=== PATIENT | male | born 1950 | race Caucasian/White ===

== ENCOUNTER → 2018-03-13 09:50 | Outpatient (CLI) | payer MEDICARE, OTHER, SELFPAY ==
[2018-03-13 11:09] LABS: AST(SGOT) 22 U/L (15-37); Alanine Aminotransfer ALT/SGPT 33 U/L (16-61); Albumin, Serum 3.4 g/dL (3.2-5.0); Alkaline Phosphatase 106 U/L (45-117); Anion Gap 10 (5-15); BUN 16 mg/dL (7-18); Calcium,Total 8.7 mg/dL (8.5-10.1); Chloride 108 mmol/L (98-107); Cholesterol 145 mg/dL (200); Creatinine, Serum 0.94 mg/dL (0.70-1.30); EST Glomerular Filtration Rate 84 mL/min (>60); Est Glom Filt Rate - Afr Amer 102 mL/min (>60); Globulin 3.3 g/dL (2.2-4.2); Glucose 115 mg/dL (74-106); High Density Lipoprotein 46 mg/dL; PSA,Total - Annual Screen 2.52 ng/mL (0.00-4.00); Potassium 4.2 mmol/L (3.5-5.1); Protein, Total 6.7 g/dL (6.4-8.2); Sodium Level 143 mmol/L (136-145); Triglycerides 107 mg/dL; Very Low Density Lipoprotein 21 mg/dL (5-40)
[2018-03-14 11:31] LABS: Hep C Antibodies <0.1 s/co ratio (0.0-0.9)
== END ==
PROVIDERS: Family Provider Family Medicine; PCP Family Medicine; Visit Provider Family Medicine
DX: Z00.00 Encounter for general adult medical examination without abnormal findings (principal); I10 Essential (primary) hypertension; N40.0 Benign prostatic hyperplasia without lower urinary tract symptoms
CPT/HCPCS: 36415; 80053; 80061; 84153; 86803; G0103

== ENCOUNTER → 2019-03-15 09:40 | Outpatient (CLI) | payer MEDICARE, OTHER, SELFPAY ==
[2018-07-06 14:28] VITALS: BMI 25.4
[2019-03-15 12:51] LABS: AST(SGOT) 16 U/L (15-37); Alanine Aminotransfer ALT/SGPT 29 U/L (16-61); Albumin, Serum 3.5 g/dL (3.2-5.0); Alkaline Phosphatase 107 U/L (45-117); Anion Gap 7 (5-15); BUN 12 mg/dL (7-18); BUN/Creat Ratio 12.3 RATIO (10-20); Calcium,Total 8.6 mg/dL (8.5-10.1); Chloride 109 mmol/L (98-107); Cholesterol 160 mg/dL (200); Creatinine, Serum 0.98 mg/dL (0.70-1.30); EST Glomerular Filtration Rate 81 mL/min (>60); Est Glom Filt Rate - Afr Amer 98 mL/min (>60); Globulin 3.4 g/dL (2.2-4.2); Glucose 117 mg/dL (74-106); High Density Lipoprotein 41 mg/dL; PSA,Total - Annual Screen 2.84 ng/mL (0.00-4.00); Potassium 4.2 mmol/L (3.5-5.1); Protein, Total 6.9 g/dL (6.4-8.2); Sodium Level 142 mmol/L (136-145); Triglycerides 155 mg/dL; Very Low Density Lipoprotein 31 mg/dL (5-40)
== END ==
PROVIDERS: Family Provider Family Medicine; PCP Family Medicine; Visit Provider Family Medicine
DX: E78.5 Hyperlipidemia, unspecified (principal); N40.0 Benign prostatic hyperplasia without lower urinary tract symptoms; Z12.5 Encounter for screening for malignant neoplasm of prostate
CPT/HCPCS: 36415; 80053; 80061; 84153; G0103

== ENCOUNTER → 2020-02-21 07:14 | Outpatient (CLI) | payer MEDICARE, OTHER, SELFPAY ==
[2020-02-14 15:04] VITALS: BMI 25.7
--- NOTE | 2020-02-21 07:15 | MRI_ITS ---
STUDY: MRI RIGHT SHOULDER REASON FOR EXAM: Male, 69 years old. DECREASED ROM, UNABLE TO ABDUCT R ARM, NO INJURY TECHNIQUE: Standardized fat and water weighted pulse sequences were obtained in all 3 orthogonal planes. COMPARISON: None. FINDINGS: Mild supraspinatus and infraspinatus tendinosis and peritendinitis is but no macro tear or muscular atrophy. Moderate subscapularis tendinosis with a undersurface tear with the intra-articular subluxation of the long head of the biceps tendon. Normal teres minor tendon. Normal supraspinatus muscle. Normal infraspinatus muscle. Normal subscapularis muscle. Normal teres minor muscle. Normal glenohumeral articulation. Normal humeral head and visualized proximal humerus. Normal biceps labral complex. There is dislocation of the biceps tendon, displaced medially along the deep surface of the subscapularis tendon. Normal labrum. Normal capsulo- ligamentous complex. Normal rotator interval. There is moderate osteoarthritis of the acromioclavicular articulations. There is a Type II morphology (curved), with a neutral orientation. There is no subacromial-subdeltoid bursal fluid. There is thickening of the coracohumeral ligament with low-signal material partially effacing the subcoracoid fat triangle, compatible with adhesive capsulitis in the rotator cuff interval. Normal quadrilateral space. Normal axillary space. Normal deltoid muscle. Normal trapezius muscle. MRI/Upper Ext Joint Only(Routine) IMPRESSION: 1. Suspect clinical adhesive capsulitis. 2. Mild supraspinatus and infraspinatus tendinosis and peritendinitis is but no macro tear or muscular atrophy. 3. Moderate acromioclavicular joint arthrosis with some inferior osteophyte formation producing medial outlet stenosis. 4. Moderate subscapularis tendinosis with an undersurface tear and intra-articular subluxation long head of the biceps tendon. Electronically Signed: Lars Leung MD at 9:04 EDT Tel , Service support ,
== END ==
PROVIDERS: PCP Family Medicine; Referring Provider Family Medicine; Visit Provider Family Medicine
DX: M19.011 Primary osteoarthritis, right shoulder (principal)
CPT/HCPCS: 73221

== ENCOUNTER → 2020-03-16 08:07 | Outpatient (CLI) | payer MEDICARE, OTHER, SELFPAY ==
[2020-02-28 08:27] VITALS: BMI 25.0
[2020-03-16 12:28] LABS: ALB/GLOB Ratio 1.1 RATIO (0.9-2.4); AST(SGOT) 19 U/L (15-37); Alanine Aminotransfer ALT/SGPT 28 U/L (16-61); Albumin, Serum 3.5 g/dL (3.2-5.0); Alkaline Phosphatase 106 U/L (45-117); Anion Gap 7 (5-15); BUN 20 mg/dL (7-18); BUN/Creat Ratio 19.6 RATIO (10-20); Calcium,Total 8.5 mg/dL (8.5-10.1); Chloride 107 mmol/L (98-107); Cholesterol 150 mg/dL (200); Creatinine, Serum 1.02 mg/dL (0.70-1.30); EST Glomerular Filtration Rate 76 mL/min (>60); Est Glom Filt Rate - Afr Amer 92 mL/min (>60); Globulin 3.2 g/dL (2.2-4.2); Glucose 126 mg/dL (74-106); High Density Lipoprotein 44 mg/dL; Potassium 3.8 mmol/L (3.5-5.1); Protein, Total 6.7 g/dL (6.4-8.2); Sodium Level 140 mmol/L (136-145); Triglycerides 131 mg/dL; Very Low Density Lipoprotein 26 mg/dL (5-40)
== END ==
PROVIDERS: PCP Family Medicine; Visit Provider Family Medicine
DX: E78.5 Hyperlipidemia, unspecified (principal); E78.00 Pure hypercholesterolemia, unspecified
CPT/HCPCS: 36415; 80053; 80061

== ENCOUNTER 2020-03-31 09:30 | Outpatient (RCR) | payer MEDICARE, OTHER, SELFPAY ==
[2020-02-28 08:27] VITALS: BMI 25.0
--- NOTE | 2020-03-04 12:35 | HP.PTEVAL_ITS ---
Patient's Visit Information RHONDA CARTER is a 69 year old M referred to Physical Therapy by Dr. Navdeep Ramirez, with a diagnosis of IMPINGEMNET,SUBSCAPULARIS PARTIAL TEAR. Date of Evaluation: 03/04/20 Physical Therapist: Goldy Ruiz, PT, Cert MDT, OCS - Visit Plan Frequency: 2x /Week Duration: 4 Weeks Plan: PT INTERVENTIONS RTC/SCAPULAR STRENGTHENING,ROM,POSTURAL EX'S,MODLATIES NEEDED - Subjective This 69 y/o male presents to physical therapy with right shoulder impingement ,subscapularis tear. Patient has had right shoulder since September ,see DR Velez then referred to DR Pedraza , Did MRI showed partai subscapularis tear,Did cortizone injection which helped. Patient shoulder pain is grossly .Patient symptoms worse with OH activity ,lifting and movement to side affects ADLS. Patient alleviating factors cortizone and meloxicam. Denies parthesia/tingling. Symptoms dont affect sleeping.Patient symptoms affects QOL and ADL. No h/o of trauma and/or falls. SOCAIL: . VOCATION: retired - Pain Right Shoulder Pain Intensity (Out of 10): 2 - Objective POSTURE:mild foward posture. NEURO: intact. PALAPTION: unremarkable. AROM: shoulder fexion 150 degrees endrange,abd 145 degrees pain along with eccentric,ER 90 DEGREES,IR L1. MMT: RTC 4/5,ANTERIOR 4-/5 pain ,LATERAL DELTIOD 3+/5 - Special Tests R Shoulder External Rotation Lag Test - RC Tear: Negative R Shoulder Supine Impingement Test - RC Tear: Negative R Shoulder Lift Off Test - Subscapular Tear: Negative R Shoulder Belly Press - SupScap: Negative R Shoulder Neer - Impingement: Positive R Shoulder Baptiste Blanco - Impingement: Positive - Goals Goal 1:: Independant with HEP Goal Time Frame: 4-6 Weeks Goal 2:: Patient improve posture for ADL'S Goal Time Frame: 4-6 Weeks Goal 3:: Patient to decrease shoulder pain by 50% or > to improve function Goal Time Frame: 4-6 Weeks Goal 4:: Patient to increase AROM shoulder WFL with less pain with OH activities Goal Time Frame: 4-6 Weeks Goal 5:: Patient to increase strength 4/5 with mild pain to improve function. Goal Time Frame: 4-6 Weeks Goal 6:: Patient to improve quick dash by 5 points or > to imporove QOL. - Rehabilitation Potential Physical Therapy Diagnosis: This patient has mod imingment right shoulder with subscapularis tear partial with decrease ROM ,strength and function with OH activities thus benifit from skilled PT Rehabilitation Potential: Good - Anticipated Interventions Patient/Client Instruction: Educate patient on: Condition, Plan of Care For the Purpose of:: To decrease pain, To increase ROM, To improve muscle p erformance and motor function, To increase tolerance to activity/condition/position, To improve ability of physical actions for home/community/work/leisure, To improve gait and locomotor functions, To decrease soft tissue restriction, To increase flexibility/ROM, To improve endurance, To reduce risk of recurrence, To improve ability to perform tasks related to life management Therapeutic Exercise to Include: Strength training, Postural training, Flexibilty training, Scapular Strength/Stabilization Comment: RTC For the Purpose of:: To decrease pain, To increase ROM, To improve muscle performance and motor function, To improve ability to perform ADL's, To increase tolerance to activity/condition/position, To improve ability of physical actions for home/community/work/leisure, To improve health of tissue, To decrease soft tissue restriction, To increase flexibility/ROM, To reduce risk of recurrence, To improve ability to perform tasks related to life management TENS: Yes IF ES: Yes Cryotherapy (ice pack, ice massage): Yes Thermo therapy (hot pack): Yes Ultrasound (thermal/non thermal): Yes For the Purpose of:: To decrease pain, To increase ROM, To improve nutrient delivery to tissue, To increase oxygenation perfusion, To improve health of tissue, To decrease soft tissue restriction Thank you for the opportunity to evaluate your patient. For Medicare and Medicare HMO plans, please review the plan of care and approve it. It will need to be FAXED BACK to us at [phone] for Medicare purposes. For Medicare only, by signing this I certify the plan of care. Please let me know if there are questions or concerns regarding this plan of care. Physician Signature: Date:
--- NOTE | 2020-03-31 09:59 | HP.PTDCSUM ---
It has been my pleasure to treat RHONDA CARTER referred by Dr. Navdeep Ramirez DO, with the diagnosis of IMPINGEMNET,SUBSCAPULARIS PARTIAL TEAR for a total of 9 visit(s). Discharge Date: Please see the following information for a summary of their discharge status. Subjective: Doing well able to do all ADLS' and housework tasks Right Shoulder Pain Intensity (Out of 10): 0 % Improvement: 100 Objective/Function: POSTURE: mild foward posture. AROM SHOULDER : flexion 160 degrees,160 abd ,ER 90 ,IR BEHIND BACK L2. MMT: RTC 4/5,DELTOID 4/5 Goal 1:: Independant with HEP Goal Progress: Goal Met Goal 2:: Patient improve posture for ADL'S Goal Progress: Goal Met Goal 3:: Patient to decrease shoulder pain by 50% or > to improve function Goal Progress: Goal Met Goal 4:: Patient to increase AROM shoulder WFL with less pain with OH activities Goal Progress: Goal Met Goal 5:: Patient to increase strength 4/5 with mild pain to improve function. Goal Progress: Goal Met Goal 6:: Patient to improve quick dash by 5 points or > to imporove QOL. Goal Progress: Goal Met Plan: D/C TO HEP If there are questions or concerns regarding this patient's physical therapy, please feel free to call me at [phone]. Thank you for the referral of this patient. Sincerely, Goldy Ruiz PT, Cert MDT, OCS
== END 2020-03-31 19:00 | disposition home or self-care (01) ==
LOC: PT 09:30
PROVIDERS: PCP Family Medicine; Referring Provider Orthopaedic Surgery; Visit Provider Orthopaedic Surgery
DX: M75.110 Incomplete rotator cuff tear or rupture of unspecified shoulder, not specified as traumatic (principal)
CPT/HCPCS: 97110; 97162

== ENCOUNTER → 2021-04-09 08:24 | Outpatient (CLI) | payer MEDICARE, OTHER, SELFPAY ==
[2021-04-09 12:40] LABS: ALB/GLOB Ratio 0.9 RATIO (0.9-2.4); AST(SGOT) 16 U/L (15-37); Alanine Aminotransfer ALT/SGPT 33 U/L (16-61); Alkaline Phosphatase 103 U/L (45-117); Anion Gap 5 (5-15); BUN 15 mg/dL (7-18); BUN/Creat Ratio 15.9 RATIO (10-20); Calcium,Total 8.3 mg/dL (8.5-10.1); Chloride 109 mmol/L (98-107); Cholesterol 116 mg/dL (200); Creatinine, Serum 0.94 mg/dL (0.70-1.30); EST Glomerular Filtration Rate 83 mL/min (>60); Est Glom Filt Rate - Afr Amer 101 mL/min (>60); Globulin 3.4 g/dL (2.2-4.2); Glucose 114 mg/dL (74-106); High Density Lipoprotein 41 mg/dL; PSA,Total- Diagnostic 3.79 ng/mL (0.0-4.0); Potassium 3.8 mmol/L (3.5-5.1); Protein, Total 6.4 g/dL (6.4-8.2); Sodium Level 141 mmol/L (136-145); Triglycerides 95 mg/dL; Very Low Density Lipoprotein 19 mg/dL (5-40)
== END ==
PROVIDERS: PCP Family Medicine; Referring Provider Family Medicine; Visit Provider Family Medicine
DX: E78.00 Pure hypercholesterolemia, unspecified (principal); N40.1 Benign prostatic hyperplasia with lower urinary tract symptoms; R35.0 Frequency of micturition
CPT/HCPCS: 36415; 80053; 80061; 84153

== ENCOUNTER → 2021-05-13 | Outpatient (CLI) | payer MEDICARE, OTHER, SELFPAY ==
--- NOTE | 2021-05-13 11:30 | LES_PTH ---
PATIENT: RHONDA CARTER LOC: [facility] U#:[id number] AGE/SX: 71/M ROOM: RE05/13/[address]: Dr. Shoaib Velez DO : 1950 BED: DIS: 05/13/2021 SPEC #: [id number] RECD: 05/13/21 14:32 STATUS: ALTAGRACIA REJimmy #: [id number] JOSELITO: 05/13/21 11:[address]: Shoaib Velez DEPT: SURGICAL PATHOLOGY RECD BY: Ryann Bar Tissues: Skin of scalp, NOS Procedures: Surgery Specimen Level IV HEADER OPERATION: Horn removal PRE-OP DIAGNOSIS: Cutaneous horn TISSUE SUBMITTED: Scalp MICROSCOPIC DIAGNOSIS Scalp lesion, biopsy: Superficial portion of squamous epithelial lesion with verrucous features. See comment. GREGOR:brianna 05/17/2021 COMMENT Excision of the lesion is suggested for final diagnosis. The specimen only consists of superficial portion of the lesion. Clinical correlation and appropriate follow up are necessary. MICROSCOPIC DESCRIPTION Slides are reviewed. GROSS DESCRIPTION Received in fixative is one container labeled with the patient's name and designated scalp. The specimen consists of a round piece of garcia-white skin measuring 0.5 x 0.5 x 0.3 cm. The specimen is inked, sectioned and submitted entirely in one cassette. / SJ:rg 05/14/21 TC:5 [facility]: [id number]
== END | disposition home or self-care (01) ==
LOC: LABSPEC 13:38
PROVIDERS: PCP Family Medicine; Referring Provider Family Medicine; Visit Provider Family Medicine
DX: L85.8 Other specified epidermal thickening (principal)
CPT/HCPCS: 88305

== ENCOUNTER → 2021-12-22 | Outpatient (CLI) | payer MEDICARE, OTHER, SELFPAY ==
--- NOTE | 2021-12-22 12:18 | RAD_ITS ---
STUDY: X-RAY - LEFT KNEE REASON FOR EXAM: Male, 71 years old. Left knee weakness. TECHNIQUE: 4 view(s) of the knee. COMPARISON: None. FINDINGS: Normal visualized distal femur. Normal visualized proximal tibia and fibula. Normal proximal tibiofibular articulation. Normal medial femorotibial compartment. Normal lateral femorotibial compartment. Slight lateral tilt and subluxation of the patella with mild arthrosis of the patellofemoral compartment. The soft tissue structures are unremarkable. RAD/Knee 4 or More Views IMPRESSION: Mild arthrosis of the patellofemoral compartment. Electronically Signed: Dung Romero MD at 13:08 EDT ,
--- NOTE | 2021-12-22 12:22 | RAD_ITS ---
STUDY: X-RAY - LUMBAR SPINE REASON FOR EXAM: Male, 71 years old. Low back pain. TECHNIQUE: 3 view(s) of the lumbar spine were obtained. COMPARISON: None FINDINGS: Mild osteopenia. Normal lumbar lordosis. There is no substantial scoliosis. There is a normal alignment of the vertebrae. Diffuse facet sclerosis. Diffuse intervertebral disc space narrowing most marked at L1-2, L2-3 and to the greatest degree L5-S1 with osteophyte formation. Aortic calcification. RAD/Lumbar Spine 2 or 3 Views IMPRESSION: Osteopenia with moderate diffuse lumbosacral spondylosis. No acute abnormality, evidence of erosive changes or fusion. Electronically Signed: Dung Romero MD at 13:10 EDT ,
== END | disposition home or self-care (01) ==
PROVIDERS: PCP Family Medicine; Referring Provider Physician Assistant; Visit Provider Physician Assistant
DX: M25.562 Pain in left knee (principal); M54.40 Lumbago with sciatica, unspecified side
CPT/HCPCS: 72100; 73564

== ENCOUNTER 2022-01-28 10:00 | Outpatient (RCR) | payer MEDICARE, OTHER, SELFPAY ==
--- NOTE | 2021-12-31 11:31 | HP.PTEVAL_ITS ---
Patient's Visit Information RHONDA CARTER is a 71 year old M referred to Physical Therapy by MILLICENT Tripathi with a diagnosis of ACUTE BACK PAIN WITH SCIATICA. Date of Evaluation: 12/31/21 Physical Therapist: Goldy Ruiz, PT, Cert MDT, OCS - Visit Plan Frequency: 2x /Week Duration: 4 Weeks Plan: PT INTERVETIONS LUMBAR FLEXION ,DLS ,PSOTURAL EX'S AND MODLITIES ,ACTIVITY MODIFICATIONS - Subjective This 71 y/o male presents to physical therapy with lumbar radiculopathy . Patient has had lumbar radiculopathy for ~ 4 weeks . Symptoms worse with possible walking causing symptoms in leg. Location ls region thigh and lateral tibia . Heavy ache and initially was ache. Seen DR tried prednisone and muscle relaxers. Patient had x-rays showed DDD . Try PT . Aggravating walking, standing affects ADLS'. Alleviating symptoms rest ,hard chair Teylonal. Patient sleeping good. c/o paresthesia/tingling left lower leg. Coughing/sneezing/staining. No abnormal night pain. Bowel/bladder -. Patient pain affects QOL and housework tasks. No prior PT . No h/o trauma. Knee feel as though gives way. SOCAIL: . VOCATION: retired - Pain Left Back Pain Intensity (Out of 10): 9 Pain Intensity Range: 10 Left Lower Extremity Pain Intensity (Out of 10): 6 Pain Intensity Range: 10 - Objective POSTURE: mild forward posture. PALAPTION: tender LS left. NEURO: c/o paresthesia/tingling left lower leg light touch diminished ,reflexes L3-4,L4-5,L5-S1 1/3. SYMMETRIES : align. GAIT: reciprocal pattern mild antalgic gait. MMT: quads/hams 4/5,hip flexion 4-/5,ankle 4/5. FLEXABLITY: hamstrings mod tight. LUMBAR ROM: flexion mod loss ,extension mod loss ,side glides mod loss - Special Tests L/S Slump test left side: Negative L/S Slump test right side: Negative L/S Left Straight Leg Raise: Negative L/S Right Straight Leg Raise: Negative Lumbar Standing: Flexion - Mechanical Response: No effect Lumbar Standing: Flexion - Symptoms During Testing: Increases Lumbar Standing: Flexion - Symptoms After Testing: No worse Lumbar Standing: Extension - Mechanical Response: No effect Lumbar Standing: Extension - Symptoms During Testing: Increases Lumbar Standing: Extension - Symptoms After Testing: Worse Lumbar Standing: Right Side Glides - Mechanical Response: No effect Lumbar Standing: Right Side Garrison - Symptoms During Testing: No effect Lumbar Standing: Right Side Garrison - Symptoms After Testing: No effect Lumbar Standing: Left Side Garrison - Mechanical Response: No effect Lumbar Standing: Left Side Garrison - Symptoms During Testing: No effect Lumbar Standing: Left Side Garrison - Symptoms After Testing: No effect - Balance/Special Test Scores Oswestry Low Back Score: 18 - Goals Goal 1:: I with HEP for back Goal Time Frame: 4-6 Weeks Goal 2:: Patient to demonstrate 50% improvement with decrease pain and improved function Goal Time Frame: 4-6 Weeks Goal 3:: Patient to improve lumbar ROM for function of recovery to put on shoes Goal Time Frame: 4-6 Weeks Goal 4:: Patient be able to standing walk > 15 mins with less pain in leg and back Goal Time Frame: 4-6 Weeks Goal 5:: Patient to improve back oswestry score by 5 points to improve QOPL Goal Time Frame: 4-6 Weeks - Rehabilitation Potential Physical Therapy Diagnosis: This patient has left lateral stenosis foraminal with symptoms increased with position and motion testing impairs walking and standing affects ADL's and housework task thus benefit from skilled PT Rehabilitation Potential: Good - Anticipated Interventions Patient/Client Instruction: Educate patient on: Condition, Plan of Care For the Purpose of:: To decrease pain, To increase ROM, To improve muscle performance and motor function, To improve ability to perform ADL's, To increase tolerance to activity/condition/position, To improve ability of physical actions for home/community/work/leisure, To improve health of tissue, To decrease soft tissue restriction, To increase flexibility/ROM, To improve endurance, To prevent re-injury, To improve tolerance to ADL's Therapeutic Exercise to Include: Strength training, Endurance training, Balance training, Body mechanics, Postural training, Flexibilty training, Dynamic Lumbar Stabilization For the Purpose of:: To decrease pain, To increase ROM, To improve muscle performance and motor function, To improve ability to perform ADL's, To improve performance and independence with ADL's, To improve ability of physical actions for home/community/work/leisure, To improve health of tissue, To decrease soft tissue restriction, To increase flexibility/ROM, To improve balance, To reduce risk of recurrence TENS: Yes IF ES: Yes Cryotherapy (ice pack, ice massage): Yes Thermo therapy (hot pack): Yes Ultrasound (thermal/non thermal): Yes For the Purpose of:: To decrease pain, To increase ROM, To improve nutrient delivery to tissue, To increase oxygenation perfusion, To improve health of tissue, To decrease soft tissue restriction Thank you for the opportunity to evaluate your patient. For Medicare and Medicare HMO plans, please review the plan of care and approve it. It will need to be FAXED BACK to us at [phone] for Medicare purposes. For Medicare only, by signing this I certify the plan of care. Please let me know if there are questions or concerns regarding this plan of care. Physician Signature: Date:
--- NOTE | 2022-01-28 11:45 | HP.PTDCSUM ---
It has been my pleasure to treat RHONDA CARTER referred by MILLICENT Tripathi, with the diagnosis of ACUTE BACK PAIN WITH SCIATICA for a total of 9 visit(s). Discharge Date: 01/28/22 Please see the following information for a summary of their discharge status. Subjective: Doing well ready Left Back Pain Intensity (Out of 10): 1 Left Lower Extremity Pain Intensity (Out of 10): 0 Objective/Function: POSTURE: mild forward posture. GAIT: reciprocal pattern. MMT: quads/hams 4/5,hip flexion 4/5 ,ankle 5/5. LUMBAR ROM: flexion min loss ,extension min loss, Goal 1:: I with HEP for back Goal Progress: Goal Met Goal 2:: Patient to demonstrate 50% improvement with decrease pain and improved function Goal Progress: Goal Met Goal 3:: Patient to improve lumbar ROM for function of recovery to put on shoes Goal Progress: Goal Met Goal 4:: Patient be able to standing walk > 15 mins with less pain in leg and back Goal Progress: Goal Met Goal 5:: Patient to improve back oswestry score by 5 points to improve QOPL Goal Progress: Goal Met Plan: D/C Discharge Comments: hep If there are questions or concerns regarding this patient's physical therapy, please feel free to call me at [phone]. Thank you for the referral of this patient. Sincerely, Goldy Ruiz, PT, Cert MDT, OCS Balance/Gait/Functional tests - Balance/Special Test Scores Oswestry Low Back Score: 2
== END 2022-01-28 19:00 | disposition home or self-care (01) ==
LOC: PT 10:00
PROVIDERS: PCP Family Medicine; Referring Provider Physician Assistant; Visit Provider Physician Assistant
DX: M54.40 Lumbago with sciatica, unspecified side (principal)
CPT/HCPCS: 97110; 97162

== ENCOUNTER → 2022-04-11 | Outpatient (CLI) | payer MEDICARE, OTHER, SELFPAY ==
[2022-04-11 12:49] LABS: ALB/GLOB Ratio 1.1 RATIO (0.9-2.4); AST(SGOT) 18 U/L (15-37); Alanine Aminotransfer ALT/SGPT 29 U/L (16-61); Albumin, Serum 3.4 g/dL (3.2-5.0); Alkaline Phosphatase 93 U/L (45-117); Anion Gap 8 (5-15); BUN 17 mg/dL (7-18); Calcium,Total 8.7 mg/dL (8.5-10.1); Chloride 110 mmol/L (98-107); Cholesterol 141 mg/dL (200); EST Glomerular Filtration Rate 78 mL/min (>60); Est Glom Filt Rate - Afr Amer 94 mL/min (>60); Globulin 3.2 g/dL (2.2-4.2); Glucose 160 mg/dL (74-106); High Density Lipoprotein 43 mg/dL; Potassium 3.9 mmol/L (3.5-5.1); Protein, Total 6.6 g/dL (6.4-8.2); Sodium Level 142 mmol/L (136-145); Triglycerides 136 mg/dL; Very Low Density Lipoprotein 27 mg/dL (5-40)
== END | disposition home or self-care (01) ==
LOC: BIMLAB 09:55
PROVIDERS: PCP Family Medicine; Referring Provider Family Medicine; Visit Provider Family Medicine
DX: E78.00 Pure hypercholesterolemia, unspecified (principal)
CPT/HCPCS: 36415; 80053; 80061

== ENCOUNTER → 2022-04-21 | Outpatient (CLI) | payer MEDICARE, OTHER, SELFPAY ==
[2022-04-21 12:49] LABS: Hemoglobin A1c 6.8 % (3.8-5.6)
== END | disposition home or self-care (01) ==
LOC: BIMLAB 10:05
PROVIDERS: PCP Family Medicine; Referring Provider Family Medicine; Visit Provider Family Medicine
DX: N40.1 Benign prostatic hyperplasia with lower urinary tract symptoms (principal); R35.0 Frequency of micturition; N52.9 Male erectile dysfunction, unspecified; Z79.899 Other long term (current) drug therapy
CPT/HCPCS: 36415; 83036; 84153; 84403

== ENCOUNTER → 2022-08-08 | Outpatient (CLI) | payer MEDICARE, OTHER, SELFPAY ==
[2022-08-08 12:44] LABS: Hemoglobin A1c 7.1 % (3.8-5.6)
== END | disposition home or self-care (01) ==
LOC: BIMLAB 10:04
PROVIDERS: PCP Family Medicine; Referring Provider Family Medicine; Visit Provider Family Medicine
DX: R73.09 Other abnormal glucose (principal)
CPT/HCPCS: 36415; 83036

== ENCOUNTER 2022-12-01 13:30 | Outpatient (RCR) | payer MEDICARE, OTHER, SELFPAY ==
--- NOTE | 2022-11-24 12:29 | HP.PTEVAL_ITS ---
Patient's Visit Information RHONDA CARTER is a 72 year old M referred to Physical Therapy by Dr. Goldy Yip MD with a diagnosis of Parkinson's. Date of Evaluation: 11/24/22 Physical Therapist: ERVIN Way - Visit Plan Frequency: 1x/Week Duration: 3 Weeks Plan: 1-2 visits to learn I HEP for balance, dual tasking, gait, posture and pt to join PD class 1 X/ week. HEP: standing heel and toe raises - Subjective Pt was dx with PD in the fall. He is meds 3X/ day. just changed the meds 2 weeks ago but has not noticed a difference. R elbow down on the R does the shaking. His R foot tends to flop when tired and they walk 1.5 miles per day. No falls. He does not feel any weakness. No trouble getting in and out of bed and no trouble rolling over in bed. No trouble on stairs. - Objective Gait: walks with normal gait pattern with increase shaking of R UE. He picks up his feet and has a good stride length. LE MMT: R hip flexion 12.3 and L 11.5. R knee ext 24.2 and L 20.3. R knee flex 14.1 and L 11.8. FGA: 28. TU.27. heel and toe raises: able to raise both without UE support and without LOB but has decrease ROM with B DF. standing opp arm and leg: Only able to do 3 in a row at first and then had to concentrate and was able to get up to 10 in a row. - Balance/Special Test Scores Functional Gait Assessment Score: 28 % Disability: 6.6700 Lower Extremity Functional Score: 60 - Goals Goal 1:: I HEP for posture, dual tasking, gait, balance Goal Time Frame: 4-6 Weeks Goal 2:: Be able to complete X 20 Standing opp arm and leg in a row with counting Goal Time Frame: 4-6 Weeks - Rehabilitation Potential Rehabilitation Potential: Good - Anticipated Interventions Patient/Client Instruction: Educate patient on: Condition, Plan of Care For the Purpose of:: To increase ROM, To improve nutrient delivery to tissue, To improve muscle performance and motor function, To improve ability to perform ADL's, To increase tolerance to activity/condition/position, To improve performance and independence with ADL's, To improve ability of physical actions for home/community/work/leisure, To improve gait and locomotor functions, To improve balance, To improve safety with gait Therapeutic Exercise to Include: Strength training, Balance training, Postural training, Gait and locomotor training, Neuromotor development, Active ROM For the Purpose of:: To improve nutrient delivery to tissue, To improve muscle performance and motor function, To increase tolerance to activity/condition/position, To improve performance and independence with ADL's, To decrease level of supervision to perform tasks, To improve ability of physica l actions for home/community/work/leisure, To improve gait and locomotor functions, To improve balance, To improve safety with gait Functional Training to Include: Gait training For the Purpose of:: To improve gait and locomotor functions Thank you for the opportunity to evaluate your patient. For Medicare and Medicare HMO plans, please review the plan of care and approve it. It will need to be FAXED BACK to us at [phone] for Medicare purposes. For Medicare only, by signing this I certify the plan of care. Please let me know if there are questions or concerns regarding this plan of care. Physician Signature: Date:
--- NOTE | 2022-12-01 14:07 | HP.PTDCSUM ---
It has been my pleasure to treat RHONDA CARTER referred by Dr. Goldy Yip MD, with the diagnosis of Parkinson's for a total of 2 visit(s). Discharge Date: 12/01/22 Please see the following information for a summary of their discharge status. Subjective: Pt like the PD class but will miss next week % Improvement: 20 Objective/Function: Pt had good understanding of above exercises which were given as a HEP. Pt struggles with standing opp arm and leg Goal 1:: I HEP for posture, dual tasking, gait, balance Goal Progress: Goal Met Goal 2:: Be able to complete X 20 Standing opp arm and leg in a row with counting Goal Progress: Progressing Plan: 1-2 visits to learn I HEP for balance, dual tasking, gait, posture and pt to join PD class 1 X/ week. HEP: standing heel and toe raises Discharge Comments: DC PT to HEP If there are questions or concerns regarding this patient's physical therapy, please feel free to call me at [phone]. Thank you for the referral of this patient. Sincerely, Tamar Bullard, MPT Balance/Gait/Functional tests - Balance/Special Test Scores Functional Gait Assessment Score: 28 % Disability: 6.6700 Lower Extremity Functional Score: 64
== END 2022-12-01 19:00 | disposition home or self-care (01) ==
LOC: PT 13:30
PROVIDERS: PCP Family Medicine; Visit Provider Psychiatry & Neurology Neurology
DX: G20 Parkinson's disease (principal)
CPT/HCPCS: 97110; 97161

== ENCOUNTER → 2023-04-18 | Outpatient (CLI) | payer MEDICARE, OTHER, SELFPAY ==
[2023-04-18 12:47] LABS: AST(SGOT) 21 U/L (15-37); Alanine Aminotransfer ALT/SGPT 16 U/L (16-61); Albumin, Serum 3.3 g/dL (3.2-5.0); Alkaline Phosphatase 95 U/L (45-117); Anion Gap 8 (5-15); BUN 15 mg/dL (7-18); BUN/Creat Ratio 14.9 RATIO (10-20); Calcium,Total 8.5 mg/dL (8.5-10.1); Chloride 107 mmol/L (98-107); Cholesterol 129 mg/dL (200); Creatinine, Serum 1.01 mg/dL (0.70-1.30); EST Glomerular Filtration Rate 77 mL/min (>60); Est Glom Filt Rate - Afr Amer 93 mL/min (>60); Globulin 3.4 g/dL (2.2-4.2); Glucose 153 mg/dL (74-106); High Density Lipoprotein 41 mg/dL; PSA,Total - Annual Screen 5.83 ng/mL (0.00-4.00); Potassium 3.9 mmol/L (3.5-5.1); Protein, Total 6.7 g/dL (6.4-8.2); Sodium Level 140 mmol/L (136-145); Triglycerides 166 mg/dL; Very Low Density Lipoprotein 33 mg/dL (5-40)
== END | disposition home or self-care (01) ==
LOC: BIMLAB 09:56
PROVIDERS: PCP Family Medicine; Visit Provider Family Medicine
DX: R73.03 Prediabetes (principal); E78.00 Pure hypercholesterolemia, unspecified; N40.1 Benign prostatic hyperplasia with lower urinary tract symptoms; R35.0 Frequency of micturition
CPT/HCPCS: 36415; 80053; 80061; 84153; G0103

== ENCOUNTER → 2023-09-06 | Outpatient (CLI) | payer MEDICARE, OTHER, SELFPAY ==
--- NOTE | 2023-09-06 09:40 | RAD_ITS ---
STUDY: X-RAY - PELVIS AND LEFT HIP REASON FOR EXAM: Male, 73 years old. Left hip pain. TECHNIQUE: 3 views of the pelvis and hip. COMPARISON: None. FINDINGS: There is a non-specific bowel gas pattern. Normal visualized soft tissue structures. Normal bilateral iliac wings, sacroiliac joints and visualized sacrum. Normal bilateral superior and inferior pubic rami. Normal pubic symphysis. Normal bilateral ischial tuberosities. Normal visualized femoral head. Normal acetabulum. Normal hip joint. RAD/HIP, UNI W/ Pelvis 2-3 Views IMPRESSION: Normal x-ray examination of the pelvis and hip. Electronically Signed: Ming Cervantes MD at 14:43 EST ,
--- NOTE | 2023-09-06 09:45 | RAD_ITS ---
STUDY: X-RAY - LUMBAR SPINE REASON FOR EXAM: Male, 73 years old. Low back pain TECHNIQUE: 3 view(s) of the lumbar spine were obtained. COMPARISON: Comparison is made with prior study dated December 22, 2021. FINDINGS: Normal lumbar lordosis. There is no substantial scoliosis. Minimal retrolisthesis of L3 on L4 and L2 on L3.. There is multilevel endplate spondylosis of the lumbar vertebrae. Normal disc space heights. There is atherosclerotic calcification of the abdominal aorta without a demonstrated aneurysm. RAD/Lumbar Spine 2 or 3 Views IMPRESSION: Degenerative changes of the spine, as detailed above. Minimal retrolisthesis of L3 on L4 and L2 on L3. Electronically Signed: Ming Cervantes MD at 14:44 EST ,
--- OUTSIDE RECORDS SUMMARY | 2023-09-06 09:59 | XMS RPT_ITS | CCD ---
Author Name Unknown Address [address] [place] [address] Organization [facility] Care Team Providers Care Construction Tech Name Role Phone Carlos Alberto Velez Primary Care Provider CARLOS ALBERTO VELEZ Primary Care Unavailable FERCHO YIP Attending Unavailable FERCHO YIP Referring Unavailable CARLOS ALBERTO VELEZ Primary Care Unavailable FERCHO YIP Attending Unavailable FERCHO YIP Attending Unavailable CARLOS ALBERTO VELEZ Primary Care Unavailable FERCHO YIP Attending Unavailable CARLOS ALBERTO VELEZ Primary Care Unavailable FERCHO YIP Attending Unavailable Medications Current Medications Medication Drug Class(es) Dates Sig (Normalized) Sig (Original) aspirin 81 mg delayed release oral tablet (3 sources) Platelet Aggregation Inhibitor, Nonsteroidal Anti-inflammatory Drug take 1 tablet by mouth once daily aspirin (ASPIR) 81 MG EC tablet Take 81 mg by mouth daily. 0 Active atorvastatin 20 mg oral tablet (4 sources) HMG-CoA Reductase Inhibitor Start: 04-24-2022 atorvastatin (Lipitor) 20 MG tablet Take by mouth Nightly. 0 04/24/2022 Active calcium carbonate 1500 mg oral tablet (4 sources) take 1 tablet by mouth in the morning calcium carbonate (Os-Chau) 600 MG tablet Take 600 mg by mouth in the morning and 600 mg in the evening. Take with meals. 0 Active carbidopa 50 mg / levodopa 200 mg extended release oral tablet (11 sources) Aromatic Amino Acid Decarboxylation Inhibitor, Aromatic Amino Acid Start: 01-27-2023 End: 04-27-2023 take 1 tablet by mouth in the morning carbidopa-levodop a (Sinemet) 25-100 MG tablet Indications: Parkinson disease (HCC) Take 1 tab in AM and 1 tab po in midday 180 tablet 3 01/27/2023 04/27/2023 Active Completed/Discontinued Medications Medication Drug Class(es) Dates Sig (Normalized) Sig (Original) rOPINIRole 3 mg oral tablet (4 sources) Nonergot Dopamine Agonist Start: 09-29-2022 End: 01-27-2023 take 1 tablet by mouth three times daily rOPINIRole (Requip) 3 MG tablet Indications: Parkinson's Disease Take 1 tablet (3 mg) by mouth 3 times daily. 90 tablet 0 09/29/2022 01/27/2023 Discontinued Problems Problem Classification Problem Date Documented Da te Episodic/Chronic Other hereditary and degenerative nervous system conditions (2 sources) Other specified forms of tremor; Translations: [Other specified forms of tremor] Onset: 07-05-2022 Chronic Parkinson`s disease (5 sources) Parkinson's disease; Translations: [Parkinson's disease] Onset: 11-08-2022 01-27-2023 Chronic Parkinson`s disease (2 sources) Parkinson`s disease; Translations: [Parkinson's disease without dyskinesia, without mention of fluctuations] Onset: 2023 Results Test Name Value Interpretation Reference Range Facil ity Vital Signs Date Time Vital Sign Value Performing Clinician Faci lity 01-27-2023 11:10-0400 Body height 188 cm Fercho Yip MD Work Phone: [facility] 01-27-2023 11:10-0400 Body mass index (BMI) [Ratio] 23.65 kg/m2 Fercho Yip MD Work Phone: [facility] 01-27-2023 11:10-0400 Body weight 83.55 kg Fercho Yip MD Work Phone: [facility] 01-27-2023 11:10-0400 Diastolic blood pressure 73 mm[Hg] Fercho Yip MD Work Phone: [facility] 01-27-2023 11:10-0400 Heart rate 56 /min Fercho Yip MD Work Phone: [facility] 01-27-2023 11:10-0400 Systolic blood pressure 124 mm[Hg] Fercho Yip MD Work Phone: [facility] Encounters Encounter Date Encounter Type Care Provider Facility Start: 2023 End: 2023 ambulatory CARLOS ALBERTO [facility] Start: 01-27-2023 End: 01-28-2023 ambulatory CARLOS ALBERTO [facility] Start: 01-27-2023 End: 01-27-2023 Office outpatient visit 15 minutes Fercho Yip MD Work Phone: [facility] Plan of Treatment Date Care Activity Detail Author Start: 04-21-2032 DTaP/Tdap/Td Vaccines (2 - Td or Tdap) DTaP/Tdap/Td Vaccines (2 - Td or Tdap) [facility] Start: 2023 End: 2023 Patient encounter procedure 2023 11:00 AM EDT Office Visit [facility] [address] [facility] [address] [place] [address] Fercho Yip MD [address] [place] [address] [facility] Start: 03-24-2023 Influenza vaccination [facility] Start: 01-27-2023 End: 01-27-2023 Patient encounter procedure 01/27/2023 Office Visit Neurology Fercho Yip MD [address] [facility] [address] [place], [place] [id number] [facility] Start: 01-06-2022 COVID-19 Vaccine (5 - Booster for Moderna series) COVID-19 Vaccine (5 - Booster for Moderna series) [facility] Start: 02-18-2017 Pneumococcal Vaccine: 65+ Years (2 - PCV) Pneumococcal Vaccine: 65+ Years (2 - PCV) [facility] Start: 1998 Zoster Vaccines (1 of 2) Zoster Vaccines (1 of 2) [facility] Start: 1966 Hepatitis C screening Hepatitis C Screening [facility] Start: 1960 Depression Screening Depression Screening [facility] Start: 1948 Hepatitis B Vaccines (1 of 3 - 3-dose series) Hepatitis B Vaccines (1 of 3 - 3-dose series) [facility] Start: 1948 Lipid panel Lipid Panel [facility] Start: 1948 Medicare Annual Wellness (AWV) Medicare Annual Wellness (AWV) [facility] Start: 1948 Screening for malignant neoplasm of colon [facility] Immunizations Immunization Date Immunization Notes Care Provider Toy harvey 04-30-2019 influenza virus vacc ine, unspecified formulation Fercho Yip MD Work Phone: [facility] Payers Date Payer Category Payer Private Health Insurance HUMANA HUMANA MEDICARE SUPPLEMENT [id number] 2015-Present [address] [address] [place] [address] Commercial [id number] 2015 Private Health Insurance [id number] 2013 Medicare MEDICARE MEDICAR E PART A AND B [id number] 2013-Present [address] [place] [address] Medicare [id number] 2013 Medicare [id number] Social History Date Type Detail Facility Start: 05-30-2022 Tobacco smoking status [facility] Smokes t obacco daily [facility] History of tobacco use Cigarette Smoker S [facility] Start: 05-30-2022 End: 01-27-2023 Tobacco use and exposure Smokeless tobacco non-user [facility] Start: 11-08-2022 Alcohol intake Lifetime non-d promise (finding) [facility] Start: 1950 Sex Assigned At Not on file S [facility] Start: 10-29-2022 End: 01-27-2023 Exposure to SARS-CoV-2 (event) Not sure [facility] Start: 01-27-2023 Tobacco smoking status [facility] Occasion al tobacco smoker [facility] Start: 11-08-2022 End: 01-27-2023 Cigarettes smoked current (pack per day) - Reported 0.3 [facility] Start: 01-27-2023 Alcohol intake Current drinke r of alcohol (finding) [facility] Start: 11-08-2022 Tobacco use panel [facility] Start: 01-27-2023 Alcohol Comment 1 beer once per anisha h [facility] History of Present illness Narrative 01-27-2023 Fercho Yip MD - 01/27/2023 11:00 AM EDT Note Date & Type Note Facility 01-27-2023 History of Presen t illness Narrative Images from the original note were not included. [facility] [address] [facility] [address] Dept: [phone] Dept Loc: [phone] Visit type: Established Patient Reason for Visit: Follow-up Assessment and Plan 1. Parkinson disease (HCC) - carbidopa-levodopa CR (Sinemet CR) 50-200 MG ER tablet; Take 1 tablet by mouth Nightly. Do not crush or chew., Starting Mon01/27/2023, Until Kelsy 04/27/2023, Normal - carbidopa-levodopa (Sinemet) 25-100 MG tablet; Take 1 tab in AM and 1 tab po in midday, Normal Subjective HPI: The patient is tolerating the carb-levo, but it is not helping the tremor as much as he had hoped. He is only noticing the tremor if he is relaxed or walking REVIEW OF SYSTEMS: Review of Systems Constitutional: Negative for appetite change, chills, diaphoresis, fatigue, fever and unexpected weight change. HENT: Negative for dental problem and mouth sores. Eyes: Negative for discharge and itching. Respiratory: Negative for chest tightness and shortness of breath. Cardiovascular: Negative for chest pain, palpitations and leg swelling. Gastrointestinal: Negative for abdominal pain, nausea, rectal pain and vomiting. Endocrine: Negative for polydipsia, polyphagia and polyuria. Genitourinary: Negative for decreased urine volume, flank pain and genital sores. Musculoskeletal: Negative for arthralgias, back pain and neck pain. Skin: Negative for color change. Allergic/Immunologic: Negative for food allergies and immunocompromised state. Neurological: Negative for dizziness, syncope, weakness, light-headedness and headaches. Hematological: Negative for adenopathy. Does not bruise/bleed easily. Psychiatric/Behavioral: Negative for agitation, behavioral problems, confusion, decreased concentration, sleep disturbance and suicidal ideas. Answers submitted by the patient for this visit: Neurological Problem Questionnaire (Submitted on 01/23/2023) Chief Complaint: Neurologic complaint altered mental status: No clumsiness: No focal sensory loss: No focal weakness: No loss of balance: No memory loss: No near-syncope: No slurred speech: No visual change: No Chronicity: chronic Onset: more than 1 year ago Onset quality: insidiously Progression since onset: unchanged Focality: upper extremity auditory change: No aura: No bladder incontinence: No bowel incontinence: No vertigo: No Treatments tried: medication, walking Improvement on treatment: mild No Known Allergies Current Outpatient Medications: aspirin (ASPIR) 81 MG EC tablet, Take 81 mg by mouth daily., Disp: , Rfl: atorvastatin (Lipitor) 20 MG tablet, Take by mouth Nightly., Disp: , Rfl: calcium carbonate (Os-Chau) 600 MG tablet, Take 600 mg by mouth in the morning and 600 mg in the evening. Take with meals., Disp: , Rfl: finasteride (Proscar) 5 MG tablet, Take 5 mg by mouth daily., Disp: , Rfl: losartan (Cozaar) 25 MG tablet, Take 25 mg by mouth daily., Disp: , Rfl: metoprolol tartrate (Lopressor) 50 MG tablet, Take by mouth 2 times daily., Disp: , Rfl: tamsulosin (Flomax) 0.4 MG 24 hr capsule, 0.4 mg daily., Disp: , Rfl: carbidopa-levodopa (Sinemet) 25-100 MG tablet, Take 1 tab in AM and 1 tab po in midday, Disp: 180 tablet, Rfl: 3 carbidopa-levodopa CR (Sinemet CR) 50-200 MG ER tablet, Take 1 tablet by mouth Nightly. Do not crush or chew., Disp: 90 tablet, Rfl: 3 Past Medical History: Diagnosis Date Rotator cuff disorder, right Sciatica Social History Tobacco Use Smoking status: Some Days Packs/day: 0.25 Types: Cigarettes Smokeless tobacco: Never Substance Use Topics Alcohol use: Yes Alcohol/week: 1.0 standard drink of alcohol Types: 1 Cans of beer per week Comment: 1 beer once per month History reviewed. No pertinent surgical history. Family History Problem Relation Name Age of Onset Heart attack Mother Heart attack Father Heart attack Brother Objective Vitals: BP 124/73 (BP Location: Left arm, Patient Position: Sitting, BP Cuff Size: Adult) Pulse 56 Ht 6' 2 (1.88 m) Wt 184 lb 3.2 oz (83.6 kg) BMI 23.65 kg/m General Appearance: Patient is in no apparent distress. Head is normocephalic, atraumatic Cardiovascular: Regular rate and rhythm. No heart murmurs. No carotid bruit Neurologic: Mentation: Alert and oriented x 3 [address] person, place and time. Speech and Language: Speech and language normal Concentration and Attention: Concentration normal Memory: Memory normal Fund of Knowledge: Fund of knowledge normal Cranial Nerves: II, III, IV, V, , VII, VIII, IX, X, XI, XII examined and were intact. Motor: Strength: Strength 5 out of 5 with normal tone Alternating Movements: Normal Cogwheel Rigidity: None Tone: Tone is normal Tremor / Involuntary Movements: None Deep Tendon Reflexes: 1 out of 4 symmetrical in all four limbs. Coordination: Normal coordination upper and lower extremities Gait and Station: Station is normal. Gait is normal Data Reviewed and Summarized DIAGNOSTIC TESTING CBC: No results found for: WBC, RBC, HGB, HCT, MCV, MCH, MCHC, RDW, PLT, MPV CMP: No results found for: NA, K, CL, CO2, BUN, CREATININE, AGRATIO, LABGLOM, GLUCOSE, GLU, PROT, CALCIUM, BILITOT, ALKPHOS, AST, ALT BMP: No results found for: NA, K, CL, CO2, BUN, CREATININE, CALCIUM, LABGLOM, GLUCOSE, GLU PT/INR: No results found for: PROTIME, INR PTT: No results found for: APTT, PTT[APTT} FLP: No results found for: CHLPL, TRIG, HDL, LDLCALC, LDLDIRECT TSH: No results found for: TSH VITAMIN B12: No results found for: [id number] No results found for: PHENYTOIN, PHENOBARB, VALPROATE, CBMZ No components found for: TOPIRA @RESULTINGLABINFO@ No results found for: LEVETIRACETA, FERRITIN, CRP, CHANCE, ANCA No results found for: MICHAEL, IMMUNOGLOBUL, OLIGOBANDS No results found for: [id number], HEPCAB No results found for: CRP, ANATITER, ANCA, ANCA FERRITIN: No results found for: FERRITIN ---- MR brain wo contrast Narrative: Patient Name: RHONDA CARTER Exam Date/Time: 07/05/2022 15:12 Procedure: MR BRAIN WO CONTRAST Ordering Provider: YIP JAMES Reason For Exam: MRI BRAIN WITHOUT CONTRAST: INDICATION: Tremor. COMPARISON: None MR imaging of the brain was performed with sagittal T1 weighted, axial T2 weighted and FLAIR scans, and axial diffusion scans. The ventricles and sulci are enlarged, consistent with atrophy. There is no evidence of mass lesion or cerebral edema. There is no suggestion of intracranial hemorrhage on the gradient echo T2 sequence. There is no hydrocephalus, midline shift, or herniation. No epidural or subdural collections are present. On the FLAIR sequence a mild degree of increased signal is seen to affected germinal matrix adjacent to the lateral ventricles. Scattered T2 hyperintensities are present within the subcortical white matter, left greater than right. Diffusion weighted images are negative. The sellar and parasellar anatomy demonstrates no gross abnormality. The brain stem is unremarkable. Within the posterior fossa of the anatomy of the cerebellar pontine cistern is unremarkable as are the internal auditory canals and labyrinthine structures. Flow void is seen within the vessels of the southern ute of [place]. The globes and orbital contents are grossly normal. There is mild mucosal thickening of the ethmoid air cells. Impression: Atrophy and chronic ischemic changes. No acute intracranial process. Report Dictated on Electronically Signed By: Shaun Vail Electronically Signed Date/Time: 07/06/2022 2:33 PM EST IMPRESSION and PLAN: Diagnosis Plan 1. Parkinson disease (HCC) carbidopa-levodopa CR (Sinemet CR) 50-200 MG ER tablet carbidopa-levodopa (Sinemet) 25-100 MG tablet He is to change the Sinemet to 25/100 po in AM and midday and 50/200 CR at night. No problem-specific Assessment & Plan notes found for this encounter. FERCHO YIP MD I spent 30 minutes caring for this patient today, reviewing labs, records, seeing the patient, documenting in the record and arranging for studies. @SIGNATURE@ documented in this encounter [facility] Telephone encounter Note 12-02-2022 Telephone Encounter - Alisha Lewis MA - 12/02/2022 9:55 AM EDT Note Date & Type Note Facility 12-02-2022 Telephone encounter Note Form atting of this note might be different from the original. Last ov- 11/08/22 Next ov- 01/27/23 [facility] Note 12-02-2022 Telephone Encounter - Alisha Lewis MA - 12/02/2022 9:55 AM EDT Note Date & Type Note Facility 12-02-2022 Miscellaneous Notes Formattin g of this note might be different from the original. Last ov- 11/08/22 Next ov- 01/27/23 documented in this encounter [facility] Evaluation note Note Date & Type Note Facility documented [facility] this encounter [facility] Summary Purpose Family History No Family History Records Found Advance Directives No Advanced Directives Records Found Additional Source Comments Reason for Visit (unrecogniz ed section and content) Reason Comments Follow-up Care Teams (unrecognized sec tion and content) Construction Tech Relationship Specialty Start Date End Date Carlos Alberto Velez [address] [place] [address] PCP - General 05/30/22 (unrecognized sect ion and content) No Status Records Found INFORMATION SOURCE (unrecogn ized section and content) FOR RECORDS PERTAINING TO PATIENTS WHO ARE OR HAVE BEEN ENROLLED IN A CHEMICAL DEPENDENCY/SUBSTANCEABUSE PROGRAM, SOME INFORMATION MAY BE OMITTED. This clinical summary was aggregated from multiple sources. Caution should be exercised in using it in the provision of clinical care. This summary normalizes information from multiple sources, and as a consequence, information in this document may materially change the coding, format and clinical context of patient data. In addition, data may be omitted in some cases. CLINICAL DECISIONS SHOULD BE BASED ON THE PRIMARY CLINICAL RECORDS. [employer] provides no warranty or guarantee of the accuracy or completeness of information in this document.
== END | disposition home or self-care (01) ==
LOC: RAD 09:39
PROVIDERS: PCP Family Medicine; Referring Provider Family Medicine; Visit Provider Family Medicine
DX: M54.16 Radiculopathy, lumbar region (principal); M25.552 Pain in left hip
CPT/HCPCS: 72100; 73502

== ENCOUNTER → 2023-10-09 | Outpatient (CLI) | payer MEDICARE, OTHER, SELFPAY ==
--- NOTE | 2023-10-09 18:11 | MRI_ITS ---
HISTORY: Lumbar pain, low back and hip pain x5 months. TECHNIQUE: Multiplanar and multisequence MR images of the lumbar spine were obtained without intravenous contrast. 99 images. COMPARISON: XR 09/29/2023, 09/06/2023. FINDINGS: VERTEBRAE: Vertebral body heights maintained. Degenerative bone marrow endplate changes at multiple levels particularly L2-3 and L3-4. ALIGNMENT: Chronic 2 mm retrolisthesis of L2-3 and L3-4. CONUS: Normal morphology and position of the conus medullaris at L1. INTERVERTEBRAL DISCS: T12-L1: Very mild disc bulge without significant central canal stenosis or foraminal narrowing. L1-2: Very mild disc bulge with facet arthropathy resulting in minimal narrowing of the thecal sac and mild bilateral foraminal narrowing. L2-3: Mild disc bulge with facet arthropathy resulting in minimal narrowing of the thecal sac and moderate bilateral foraminal narrowing. L3-4: Mild-moderate posterior disc protrusion with facet arthropathy resulting in mild central canal stenosis and moderate bilateral foraminal narrowing with bilateral L3 nerve root abutment. L4-5: Moderate posterior disc protrusion superimposed on a developmentally narrow spinal canal. Marked bilateral facet arthropathy with trace right facet effusion and 4-5 mm left synovial cyst, impinging the left S1 nerve root in the thecal sac. Markedly severe central canal stenosis. Moderate bilateral foraminal narrowing with bilateral nerve root abutment. L5-S1: Very mild posterior disc bulge osteophyte complex and facet arthropathy without significant central canal stenosis. Moderate bilateral foraminal narrowing with left L5 nerve root abutment or impingement. SOFT TISSUES: Mild posterior soft tissue edema. No paraspinal fluid collection. MRI/Spine Lumbar (Routine) IMPRESSION: Multilevel degenerative disc and facet disease with markedly severe spinal canal stenosis, moderate bilateral foraminal narrowing, and left nerve root impingement secondary to a small synovial cyst at L4-5. Mild spinal canal stenosis with moderate bilateral foraminal narrowing and bilateral nerve root abutment at L3-4. Moderate bilateral foraminal narrowing with left L5 nerve root abutment or impingement at L5-S1. Electronically Signed: Gavi Zelaya MD at 14:56 EDT ,
--- OUTSIDE RECORDS SUMMARY | 2023-10-09 22:12 | XMS RPT_ITS | CCD ---
Author Name Unknown Address [address] [place] [address] Organization [facility] Care Team Providers Care Data Deliverables Manager Name Role Phone Carlos Alberto Velez Primary Care Provider [phone] CARLOS ALBERTO VELEZ Primary Care Unavailable FERCHO [...] 188 cm Fercho Yip MD Work Phone: [facility] 01-27-2023 11:10-0400 Body mass index (BMI) [Ratio] 23.65 kg/m2 Fercho Yip MD Work Phone: [facility] 01-27-2023 11:10-0400 Body weight 83.55 kg Fercho Yip MD Work Phone: [facility] 01-27-2023 11:10-0400 Diastolic blood pressure 73 mm[Hg] Fercho Yip MD Work Phone: [facility] 01-27-2023 11:10-0400 Heart rate 56 /min Fercho Yip MD Work Phone: [facility] 01-27-2023 11:10-0400 Systolic blood pressure 124 mm[Hg] Fercho Yip MD Work Phone: [facility] Encounters Encounter Date Encounter Type Care Provider Facility Start: 2023 End: 2023 ambulatory CARLOS ALBERTO [facility] Start: 01-27-2023 End: 01-28-2023 ambulatory CARLOS ALBERTO [facility] Start: 01-27-2023 End: 01-27-2023 Office outpatient visit 15 minutes Fercho Yip MD Work Phone: [facility] Plan of Treatment Date Care Activity Detail Author Start: 04-21-2032 DTaP/Tdap/Td Vaccines (2 - Td or Tdap) DTaP/Tdap/Td Vaccines (2 - Td or Tdap) [facility] Start: 2023 End: 2023 Patient encounter procedure 2023 11:00 AM EDT Office Visit [facility] [address] [place] [address] Fercho Yip MD [address] [place] [address] [facility] Start: 03-24-2023 Influenza vaccination [facility] Start: 01-27-2023 End: 01-27-2023 Patient encounter procedure 01/27/2023 Office Visit Neurology Fercho Yip MD [address] [place], [place] [id number] [facility] Start: 01-06-2022 COVID-19 Vaccine (5 - Booster for Moderna series) COVID-19 Vaccine (5 - Booster for Moderna series) [facility] Start: 02-18-2017 Pneumococcal Vaccine: 65+ Years (2 - PCV) Pneumococcal Vaccine: 65+ Years (2 - PCV) [facility] Start: 1998 Zoster Vaccines (1 of 2) Zoster Vaccines (1 of 2) [facility] Start: 1966 Hepatitis C screening Hepatitis C Screening [facility] Start: 1960 Depression Screening Depression Screening [facility] Start: 1948 Hepatitis B Vaccines (1 of 3 - 3-dose series) Hepatitis B Vaccines (1 of 3 - 3-dose series) [facility] Start: 1948 Lipid panel Lipid Panel [facility] Start: 1948 Medicare Annual Wellness (AWV) Medicare Annual Wellness (AWV) [facility] Start: 1948 Screening for malignant neoplasm of colon [facility] Immunizations Immunization Date Immunization Notes Care Provider Toy harvey 04-30-2019 influenza virus vacc ine, unspecified formulation Fercho Yip MD Work Phone: [facility] Payers Date Payer Category Payer Private Health Insurance HUMANA HUMANA MEDICARE SUPPLEMENT [id number] 2015-Present [address] [address] [place] [address] Commercial [id number] 2015 Private Health Insurance [id number] 2013 Medicare MEDICARE MEDICAR E PART A AND B [id number] 2013-Present [address] [place] [address] Medicare [id number] 2013 Medicare [id number] Social History Date Type Detail Facility Start: 05-30-2022 Tobacco smoking status [facility] Smokes t obacco daily [facility] History of tobacco use Cigarette Smoker [facility] Start: 05-30-2022 End: 01-27-2023 Tobacco use and exposure Smokeless tobacco non-user [facility] Start: 11-08-2022 Alcohol intake Lifetime non-d promise (finding) [facility] Start: 1950 Sex Assigned At Not on file [facility] Start: 10-29-2022 End: 01-27-2023 Exposure to SARS-CoV-2 (event) Not sure [facility] Start: 01-27-2023 Tobacco smoking status [facility] Occasion al tobacco smoker [facility] Start: 11-08-2022 End: 01-27-2023 Cigarettes smoked current (pack per day) - Reported 0.3 [facility] Start: 01-27-2023 Alcohol intake Current drinke r of alcohol (finding) [facility] Start: 11-08-2022 Tobacco use panel [facility] Start: 01-27-2023 Alcohol Comment 1 beer once per anisha h [facility] History of Present illness Narrative 01-27-2023 Fercho Yip MD - 01/27/2023 11:00 AM EDT Note Date & Type Note Facility 01-27-2023 History of Presen t illness Narrative Images from the original note were not included. [facility] [address] [facility] [address] Dept: [phone] Dept Loc: [phone] Visit type: Established Patient Reason for Visit: [...] TSH VITAMIN B12: No results found for: [id number] No results found for: PHENYTOIN, PHENOBARB, VALPROATE, CBMZ No components found for: TOPIRA @RESULTINGLABINFO@ No results found for: LEVETIRACETA, FERRITIN, CRP, CHANCE, ANCA No results found for: MICHAEL, IMMUNOGLOBUL, OLIGOBANDS No results found for: [id number], HEPCAB No results found for: CRP, ANATITER, [...] is seen within the vessels of the [place] of [place]. The globes and orbital contents [...] for studies. @SIGNATURE@ documented in this encounter [facility] Telephone encounter Note 12-02-2022 Telephone Encounter - Alisha Lewis MA - 12/02/2022 9:55 AM EDT Note Date & Type Note Facility 12-02-2022 Telephone encounter Note Form atting of this note might be different from the original. Last ov- 11/08/22 Next ov- 01/27/23 [facility] Note 12-02-2022 Telephone Encounter - Alisha Lewis MA - 12/02/2022 9:55 AM EDT Note Date & Type Note Facility 12-02-2022 Miscellaneous Notes Formattin g of this note might be different from the original. Last ov- 11/08/22 Next ov- 01/27/23 documented in this encounter [facility] Evaluation note Note Date & Type Note Facility [facility] Summary Purpose Family History No Family History Records Found Advance Directives No Advanced Directives Records Found Additional Source Comments Reason for Visit (unrecogniz ed section and content) Reason Comments Follow-up Care Teams (unrecognized sec tion and content) Data Deliverables Manager Relationship Specialty Start Date End Date Carlos Alberto Velez [address] [place] [address] PCP - General 05/30/22 (unrecognized [...] BE BASED ON THE PRIMARY CLINICAL RECORDS. [employer] provides no warranty or guarantee of the accuracy or completeness of information in this document.
== END | disposition home or self-care (01) ==
LOC: MRI 14:58
PROVIDERS: PCP Family Medicine; Referring Provider Orthopaedic Surgery Orthopaedic Surgery of the Spine; Visit Provider Orthopaedic Surgery Orthopaedic Surgery of the Spine
DX: M54.50 Low back pain, unspecified (principal)
CPT/HCPCS: 72148

== ENCOUNTER → 2023-10-10 | Outpatient (CLI) | payer MEDICARE, OTHER, SELFPAY ==
--- NOTE | 2023-10-10 08:57 | ECHOD_ITS ---
Reason For Study: MVP, Dilated CMP Procedure This was a 2D Doppler, Color Flow transthoracic echocardiogram. Exam performed in department. Left Ventricle Normal LV size. Left ventricular systolic function is normal. The left ventricular ejection fraction is 60 %. Stage 1 diastolic dysfunction. No regional wall motion abnormalities noted. Right Ventricle Normal RV size. Normal systolic function. Atria Normal left atrium. Normal right atrium. Mitral Valve Normal mitral valve. Mild (1+) eccentric mitral valve insufficiency. Tricuspid Valve Normal tricuspid valve. Aortic Valve Trisinus/trileaflet aortic valve. Pulmonic Valve Normal pulmonic valve. Great Vessels Normal aortic root. The pulmonary artery is normal size. Normal inferior vena cava. Pericardium/Pleural No pericardial effusion. MMode/2D Measurements & Calculations LVIDd: 4.5 cm IVSd: 0.93 cm Ao root diam: 3.2 cm LVIDs: 2.8 cm LVPWd: 1.0 cm RVDd: 3.4 cm FS: 37.6 % LAV(MOD-bp): 37.2 ml LVAd ap4: 29.5 cm2 LVAd ap2: 27.6 cm2 LAV(MOD-bp) Indexed: 17.6 ml/m2 LVLd ap4: 7.8 cm LVLd ap2: 7.8 cm LAV(MOD-sp2): 28.4 ml EDV(MOD-sp4): 95.3 ml EDV(MOD-sp2): 81.3 ml LAV(MOD-sp4): 38.0 ml EDV(sp4-el): 94.9 ml EDV(sp2-el): 82.7 ml LVAs ap4: 17.8 cm2 LVAs ap2: 17.9 cm2 LVLs ap4: 7.0 cm LVLs ap2: 7.0 cm ESV(MOD-sp4): 37.5 ml ESV(MOD-sp2): 39.1 ml ESV(sp4-el): 38.2 ml ESV(sp2-el): 39.2 ml EF(MOD-sp4): 60.7 % EF(MOD-sp2): 51.8 % EF(sp4-el): 59.8 % SV(MOD-sp4): 57.8 ml SV(MOD-sp2): 42.1 ml SV(sp4-el): 56.7 ml LA dimension(2D): 3.4 cm LA A4 area: 13.6 cm2 RA A4 area: 13.3 cm2 TAPSE: 1.7 cm Time Measurements MV dec time: 0.26 sec Doppler Measurements & Calculations MV E max javi: 63.9 cm/sec Lat Peak E' Javi: 6.2 cm/sec Med Peak E' Javi: 6.2 cm/sec MV A max javi: 82.6 cm/sec E/E' lat: 10.2 E/E' med: 10.4 MV E/A: 0.77 MV dec slope: 245.8 cm/sec2 Ao V2 max: 97.2 cm/sec LV V1 max: 76.7 cm/sec Ao max P.8 mmHg LV V1 max P.4 mmHg Ao V2 mean: 67.3 cm/sec LV V1 mean P.3 mmHg Ao mean P.0 mmHg LV V1 mean: 54.2 cm/sec Ao V2 VTI: 21.0 cm LV V1 VTI: 18.1 cm AV (velocity ratio): 0.86 PA V2 max: 64.2 cm/sec ECHO/Echo Complete Interpretation Summary Normal LV size. Left ventricular systolic function is normal. The left ventricular ejection fraction is 60 %. Stage 1 diastolic dysfunction. The global longitudinal strain is mildly abnormal. The global longitudinal stra in = -16.7% (abnormal). Ordering Physician: Marlene Pelayo Referring Physician: Rishabh Velez M.D. Performed By: Tabitha Vernon RDCS
== END | disposition home or self-care (01) ==
PROVIDERS: PCP Family Medicine; Referring Provider Nurse Practitioner Gerontology; Visit Provider Nurse Practitioner Gerontology
DX: I34.1 Nonrheumatic mitral (valve) prolapse (principal); I42.0 Dilated cardiomyopathy; I10 Essential (primary) hypertension
CPT/HCPCS: 93306

== ENCOUNTER 2023-11-22 11:30 | Outpatient (RCR) | payer MEDICARE, OTHER, SELFPAY ==
--- NOTE | 2023-10-11 16:17 | HP.PTEVAL ---
Patient's Visit Information Visit Information Visit Information: RHONDA CARTER is a 73 year old M referred to Physical Therapy by Dr. Orion Jimenez MD with a diagnosis of Lumbar Radiculopathy. Date of Evaluation: 10/11/23 Physical Therapist: Paul Ernandez DPT Visit Plan Frequency: 1x/Week Duration: 6 Weeks Plan: -hip/glute strengthening (progress from unweighted S/L hip ABD, can also trial higher level ex such as slider lunges, weighted squats, -core ex (flexion bias....need to work on progressing PPT, can also include standing core stability with cross body movements) -STM and stretching to HS, hip flexor, and piriformis as needed...erector spinae and QL very tight -PAs to help with pain if needed, gentle manual lumbar traction ?? (NOT MECHANICAL) Pt has PD, so can include large amplitude movements. Pt had difficulty with S/L hip ABD on first day, he is fairly active and should be able to progress soon. Pt has a lot of pain when straightening up from sitting, be aware of with weighted squats, STS not challenging enough. (HEP: seated flex low back stretch, supine piriformis stretch, PPT, PPT with march, seated HS stretch, glute bridge, S/L hip ABD) Subjective Subjective: Pt presents to PT with low back and L hip pain, had a bout of sciatica about 2 years ago and found that PT and meds helped. Within the last year, noticed back pain started back up and started stretches/exercises but felt it has not helped. Heat and ice have not helped, Tylenol for active days, attends PD ex classes 3x per week. Pt has PD, limits his ability to walk for prolonged periods, but back pain has further limited his ability. Pt able to stand for 15-45 minutes before needing a break, would like to be able to get back to being able to stand and walk for longer. No issues with sleeping, getting up out of bed he has a lot of stiffness. Pt is able to sit for long periods, but when getting up out of chair he reports sharp pain in back which causes L leg to feel like its going to give out. Goals: walking, yard chores/mowing Pain Back: Pain Intensity (Out of 10): 1 Pain Intensity Range: 1 and 9 Objective Objective: ROM: tightness in chica HS and quads, hips WNL with slight stretch in L hip with ER lumbar: flex 50% with pain coming back up, ext 25% with more pain than flex down back of both legs, LSB no pain chica 75% motion, R rotation 75%, L rotation 50% MMT: L - hip flex 4-/5 with pain across low back, hip ext 3+/5, hip ABD 3+/5 pain in low back R - hip flex 3+/5 similar pain, hip ext 3+/5, hip ABD 4-/5 PALPATION: tenderness in L piriformis, L QL/just sup to iliac crest, chica tightness in thoracic and lumbar erector spinae JOINT PLAY: hypomobility in thoracic spine, some increased mobility of L2-5 with major reports of pain (MICHELLE exacerbated pain) GAIT: slight trunk flexion, RLE gave way slightly with walk back to mi room STAIRS: reciprocal pattern with no pain or UE support SQUAT: no pain or issues, no LOB 5xSTS: 10.64 with no UE Balance/Special Test Scores Oswestry Low Back Score: 17 Goals Goal 1:: Pt will be able to walk for 30+ minutes with <2/10 pain Goal Time Frame: 6-8 Weeks Goal 2:: Pt will be able to get up out of a chair with <2/10 pain Goal Time Frame: 4-6 Weeks Goal 3:: Pt will demonstrate global 4+/5 chica hip strength with <2/10 pain Goal Time Frame: 4-6 Weeks Goal 4:: Pt will be able to perform yardwork/chores with <2/10 pain and minimal rest breaks Goal Time Frame: 6-8 Weeks Rehabilitation Potential Physical Therapy Diagnosis: Pt presents to PT with low back and L hip pain, lumbar hypomobility, chica hip weakness, and tightness of trunk and LEs. Pt would benefit from skilled PT services to address strength, tissue extensibility, ROM, and pain needed to perform ADLs and recreational act. Rehabilitation Potential: Good Anticipated Interventions Patient/Client Instruction: Educate patient on: Condition and Plan of Care For the Purpose of:: To decrease pain, To decrease swelling/inflammation, To increase ROM, To improve muscle performance and motor function, To improve ability to perform ADL's, To increase tolerance to activity/condition/position, To improve performance and independence with ADL's, To improve ability of physical actions for home/community/work/leisure, To improve gait and locomotor functions, To improve health of tissue, To decrease soft tissue restriction, To increase flexibility/ROM, To improve endurance, To improve balance, To assume or resume ADL's, To reduce risk of recurrence, To improve safety, To improve health and function, To foster healthy habits, To improve decision making, To improve self management, To prevent re-injury, To improve ability to perform tasks related to life management and To improve tolerance to ADL's Therapeutic Exercise to Include: Strength training, Endurance training, Body mechanics, Postural training, Flexibilty training, Gait and locomotor training, Passive ROM, Active ROM, Dynamic Lumbar Stabilization and Scapular Strength/Stabilization For the Purpose of:: To increase ROM, To improve muscle performance and motor function, To improve ability to perform ADL's, To increase tolerance to activity/condition/position, To improve performance and independence with ADL's, To improve ability of physical actions for home/community/work/leisure, To improve gait and locomotor functions, To improve health of tissue, To assume or resume ADL's, To improve health and function, To foster healthy habits, To improve self management, To prevent re-injury, To improve ability to perform tasks related to life management and To improve tolerance to ADL's Manual Therapy Techniques to Include: Mobilization, Passive ROM and Soft tissue mobilization For the Purpose of:: To decrease pain, To increase ROM, To improve nutrient delivery to tissue, To improve health of tissue, To decrease soft tissue restriction and To increase flexibility/ROM TENS: Yes Cryotherapy (ice pack, ice massage): Yes Thermo therapy (hot pack): Yes Ultrasound (thermal/non thermal): Yes For the Purpose of:: To decrease pain, To decrease swelling/inflammation, To increase ROM, To improve nutrient delivery to tissue, To improve health of tissue, To decrease soft tissue restriction, To increase flexibility/ROM, To improve safety with gait and To improve self management Text: Thank you for the opportunity to evaluate your patient. For Medicare and Medicare HMO plans, please review the plan of care and approve it. It will need to be FAXED BACK to us at [phone] for Medicare purposes. For Medicare only, by signing this I certify the plan of care. Please let me know if there are questions or concerns regarding this plan of care. Physician Signature: Date:
--- NOTE | 2023-11-22 14:04 | HP.PTREVAL ---
Re-Evaluation Intro: Dr. Orion Jimenez MD, It has been my pleasure to treat RHONDA CARTER over the last 7 visits for Lumbar Radiculopathy. Please see the progress note below for an update on the physical therapy plan of care! Subjective Subjective: Pt. reports doing better now that he had an injection. Pt. pleased currently. he repotrts being HEP Compliant. Objective Objective/Function: LUMABR ROM: flexion nil loss NE. ext mod/max loss increase NW. BS min loss NE, rotation min loss NE. Tight HS noted bilaterally. MMT: RLE: hip: flexion 24.8#, abd 21.3#; LLE: hip: flexion 23.5#, abd 22.9# stairs: normal without use of HR. Pt. is able to complete sit to stand movements without increase in symptoms. House work since his injection has been much better. We went over bridging with bands, clamshells, TA contraction exercises for HEP. He is to continue with neutral spine core stability exercises on his own at this point in time and follow up with PT in a few weeks. Plan Plan Plan: Pt. to trial PT on his own for a few weeks. If doing well I will DC him back to physician. Balance/Gait/Functional tests Balance/Special Test Scores Oswestry Low Back Score: 9 Goals Goals Goal 1:: Pt will be able to walk for 30+ minutes with <2/10 pain Goal Time Frame: 6-8 Weeks Goal Progress: Progressing Goal 2:: Pt will be able to get up out of a chair with <2/10 pain Goal Time Frame: 4-6 Weeks Goal Progress: Progressing Goal 3:: Pt will demonstrate global 4+/5 chica hip strength with <2/10 pain Goal Time Frame: 4-6 Weeks Goal Progress: Goal Met Goal 4:: Pt will be able to perform yardwork/chores with <2/10 pain and minimal rest breaks Goal Time Frame: 6-8 Weeks Goal Progress: Progressing Anticipated Interventions Anticipated Interventions Patient/Client Instruction: Educate patient on: Condition and Plan of Care For the Purpose of:: To decrease pain, To decrease swelling/inflammation, To increase ROM, To improve muscle performance and motor function, To improve ability to perform ADL's, To increase tolerance to activity/condition/position, To improve performance and independence with ADL's, To improve ability of physical actions for home/community/work/leisure, To improve gait and locomotor functions, To improve health of tissue, To decrease soft tissue restriction, To increase flexibility/ROM, To improve endurance, To improve balance, To assume or resume ADL's, To reduce risk of recurrence, To improve safety, To improve health and function, To foster healthy habits, To improve decision making, To improve self management, To prevent re-injury, To improve ability to perform tasks related to life management and To improve tolerance to ADL's Therapeutic Exercise to Include: Strength training, Endurance training, Body mechanics, Postural training, Flexibilty training, Gait and locomotor training, Passive ROM, Active ROM, Dynamic Lumbar Stabilization and Scapular Strength/Stabilization For the Purpose of:: To increase ROM, To improve muscle performance and motor function, To improve ability to perform ADL's, To increase tolerance to activity/condition/position, To improve performance and independence with ADL's, To improve ability of physical actions for home/community/work/leisure, To improve gait and locomotor functions, To improve health of tissue, To assume or resume ADL's, To improve health and function, To foster healthy habits, To improve self management, To prevent re-injury, To improve ability to perform tasks related to life management and To improve tolerance to ADL's Manual Therapy Techniques to Include: Mobilization, Passive ROM and Soft tissue mobilization For the Purpose of:: To decrease pain, To increase ROM, To improve nutrient delivery to tissue, To improve health of tissue, To decrease soft tissue restriction and To increase flexibility/ROM TENS: Yes Cryotherapy (ice pack, ice massage): Yes Thermo therapy (hot pack): Yes Ultrasound (thermal/non thermal): Yes For the Purpose of:: To decrease pain, To decrease swelling/inflammation, To increase ROM, To improve nutrient delivery to tissue, To improve health of tissue, To decrease soft tissue restriction, To increase flexibility/ROM, To improve safety with gait and To improve self management Re-Evaluation Ending Re-evaluation ending: Please do not hesitate to contact me at [phone] by phone or if you have questions or concerns regarding this new plan of care! Sincerely, Paul Ernandez DPT
== END 2023-11-22 19:00 | disposition home or self-care (01) ==
LOC: PT 11:30
PROVIDERS: PCP Family Medicine; Referring Provider Orthopaedic Surgery Orthopaedic Surgery of the Spine; Visit Provider Orthopaedic Surgery Orthopaedic Surgery of the Spine
DX: M54.16 Radiculopathy, lumbar region (principal)
CPT/HCPCS: 97110; 97161; 97530

== ENCOUNTER 2024-02-27 11:50 | Inpatient (IN) | payer MEDICARE, OTHER, SELFPAY ==
--- NOTE | 2024-02-14 09:19 | EKG12_ITS ---
Test Reason : PREOP Blood Pressure : / mmHG Vent. Rate : 063 BPM Atrial Rate : 063 BPM P-R Int : 242 ms QRS Dur : 106 ms QT Int : 396 ms P-R-T Axes : 078 -49 -36 degrees QTc Int : 405 ms Sinus rhythm with 1st degree A-V block Left axis deviation Low voltage QRS Septal infarct , age undetermined Abnormal ECG Confirmed by JUSTUS SHIPMAN, SILVIA ([id number]), editor house organ IMELDA ONEAL ([id number]) on 02/14/2024 1:23:43 PM Referred By: Orion Jimenez Confirmed By:SILVIA JEROME MD
[2024-02-14 09:40] LABS: Absolute Lymphocyte Count 1.42 X10^3/uL (0.83-4.51); Absolute Neutrophil Count 4.6 X10^3/uL (2.0-7.7); Basophil# 0.02 X10^3/uL; Basophil% 0.3 % (0-1); Eosinophils% 1.5 % (0-5); Hematocrit 46.8 % (40-54); Hemoglobin 15.5 g/dL (13.0-16.5); Lymphocyte # 1.42 X10^3/ul (0.83-4.51); Lymphocyte % 21.2 % (19-41); Mean Corp Hgb Conc 33.1 g/dL (32-36); Mean Corpuscular Hgb 32.4 pg (27.0-32.0); Mean Corpuscular Volume 97.7 fL (80-94); Mean Platelet Vol. 9.9 fl (6.2-12.0); Monocyte# 0.52 X10^3/uL; Monocyte% 7.7 % (0-10); NRBC Flagged by Analyzer 0 % (0-5); Neutrophil # 4.62 X10^3/uL (2.7-7.7); Neutrophil % 68.9 % (47-70); Platelet Count 152 K/mm3 (150-450); RBC Distribution Width CV 13.1 % (11.6-14.6); RBC Distribution Width SD 46.8 fl (35.1-43.9); Red Blood Count 4.79 M/mm3 (4.6-6.2); White Blood Count 6.7 K/mm3 (4.4-11.0)
[2024-02-14 10:03] LABS: Anion Gap 6 (5-15); BUN 15 mg/dL (7-18); BUN/Creat Ratio 13.2 RATIO (10-20); Calcium,Total 8.9 mg/dL (8.5-10.1); Chloride 106 mmol/L (98-107); Creatinine, Serum 1.14 mg/dL (0.70-1.30); EST Glomerular Filtration Rate 66 mL/min (>60); Est Glom Filt Rate - Afr Amer 80 mL/min (>60); Glucose 262 mg/dL (74-106); Potassium 3.7 mmol/L (3.5-5.1); Sodium Level 138 mmol/L (136-145)
[2024-02-14 10:49] LABS: HIV - WCH Non-Reactive (Nonreactive); Hepatitis B Surface Antibody Non-Reactive; Hepatitis C Antibody Non-Reactive (Nonreactive)
[2024-02-15 05:07] LABS: Hepatitis A AB, Total Negative (Negative)
[2024-02-27] VITALS (16 sets, daily range): BP systolic 94–145; BP diastolic 52–91; PULSE 60–75; RESP 16–18; TEMP 35.5–36.8; O2SAT 96–100; BMI 21.7
[2024-02-27] MEDS: Lactated Ringers 1,000 ML 15 ML IV ×3 (06:05→10:43)
[2024-02-27] MEDS: Magnesium 1 GM over 15 mins IV (06:15)
[2024-02-27] MEDS: Acetaminophen 500 MG Tablet 1000 MG PO ×3 (06:38→22:07)
[2024-02-27] MEDS: Insulin Lispro 100 UNIT/ML INSULN.PEN SC (06:39)
--- NOTE | 2024-02-27 07:15 | PRE.ANES_ITS ---
ASA Classification* ASA Classification ASA Classification: 3 Assessment & Plan Anesthesia* Anesthesia Assessment Anesthesia Assessment: Discussed sedation and/or anesthesia options, risks, benefits, and alternatives with patient/parents/legal guardian/POA. Questions invited. The patient/parents/legal guardian/POA seems to understand and agrees to proceed with anesthesia plan. Reviewed the physical assessment, medical history, allergy history and patient home medications list prior to surgery/procedure/anesthetic and documented any changes. Performed airway and anesthesia risk assessments. Anesthesia Type Anesthesia Type: General (*see written preanesthesia record for full assessment) Anesthesia Focused Assessment* Temperature: 98.2 F Pulse Rate: 60 Blood Pressure: 137/91 Respiratory Rate: 18 Pulse Ox: 97 Airway Assessment Mouth opens: >3 cm Mallampati Score: II Focused Labs Anesthesia Preop lab: CBC WBC 6.7 K/mm3 (4.4-11.0) 02/14/24 09:16 RBC 4.79 M/mm3 (4.6-6.2) 02/14/24 09:16 Hgb 15.5 g/dL (13.0-16.5) 02/14/24 09:16 Hct 46.8 % (40-54) 02/14/24 09:16 Plt Count 152 K/mm3 (150-450) 02/14/24 09:16 CHEMISTRY Potassium 3.7 mmol/L (3.5-5.1) 02/14/24 09:16 Sodium 138 mmol/L (136-145) 02/14/24 09:16 Magnesium 2.0 mg/dL (1.6-2.6) 02/14/24 09:16 BUN 15 mg/dL (7-18) 02/14/24 09:16 Creatinine 1.14 mg/dL (0.70-1.30) 02/14/24 09:16 Glucose 262 mg/dL (74-106) H 02/14/24 09:16 TSH 1.45 uIU/mL (0.358-3.74) 02/19/15 15:30 COAG PT 12.9 SECONDS (11.7-14.9) 02/27/15 12:29 Pre-Assessment Diagnosis/Proposed Procedure Planned Operative Procedure(s): 260 LUMBAR FUSION L4-5 LEFT FACETECTOMY Anesthesia History 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 When Was Last Pacemaker Check QUESTION #4 FULL TEXT: You/Your Family Experience fever (hyperthermia) with Anesthesia Last Oral Intake Last Oral intake: Last Oral Intake NPO since 03:30 02/27/24 06:00 Meds taken in AM with sips of Yes 02/27/24 06:00 water? Meds patient instructed to see med rec 02/27/24 06:00 take am of surgery PONV PONV - drafter automotive design layout: PONV - drafter automotive design layout Female No 02/12/24 12:55 HX of Motion Sickness No 02/12/24 12:55 HX of N/V After Surgery No 02/12/24 12:55 Non-Smoker No 02/12/24 12:55 Duration of Surgery greater Yes 02/12/24 12:55 than 60 minutes Number of Risk Factors 1 02/12/24 12:55 PONV Score Low Risk 02/12/24 12:55 Height & Weight Height & Weight: Anesthesia: Height & Weight Height 6 ft 2 in 02/27/24 06:00 Weight: 76.8 kg 02/27/24 06:00 Body Mass Index (BMI) 21.7 02/27/24 06:00 Respiratory Assessment Respiratory Assessment - drafter automotive design layout: Respiratory Tract Infection Hx - drafter automotive design layout Hx Respiratory Tract Infection No 02/12/24 12:55 STOP Sleep Apnea STOP Sleep Apnea - drafter automotive design layout: STOP Sleep Apnea - drafter automotive design layout Hx Hypertension Yes: CONTROLLED WITH MEDS 02/12/24 12:55 Hx Sleep Apnea No 02/12/24 12:55 CPAP BIPAP Do you snore loudly (louder No 02/12/24 12:55 than talking or can be heard Do you often feel tired/ No 02/12/24 12:55 fatigued/ sleepy during daytime? Has anyone observed you stop No 02/12/24 12:55 breathing during sleep? STOP Results Negative 02/12/24 12:55 QUESTION #5 FULL TEXT : Do you snore loudly (louder than talking or can be heard through closed doors)? Tobacco Use History Tobacco Use History - drafter automotive design layout: Tobacco Use History - drafter automotive design layout Tobacco Use Smoking Status Current every day smoker 02/12/24 12:55 Hx Tobacco Use Yes 02/12/24 12:55 Years Smoking Packs Smoked per Day Smoking Cessation Date was within the last 15 years Hx Smoking Cessation Date Hx Smoking Cessation Counseling Hematologic Medial History Hematologic Hx - drafter automotive design layout: Hematologic Medical Hx - rn documentation Hx of Blood Transfusion No 02/12/24 12:55 Hx of Transfusion in last 3 No 02/12/24 12:55 Months Date of Last Transfusion (if within last 3 months) Ever experience any problems No 02/12/24 12:55 with transfusion(s)? Specify any problems Hx of Preganancy in last 3 N/A 02/12/24 12:55 Months Nurse Filling Out Transfusion DSCHRIBER 02/12/24 12:55 & Questions: Date: 02/12/24 02/12/24 12:55 Time: 12:57 02/12/24 12:55 Patient unable to answer at this time (ie. confused, unrespo /Reproduction History /Reproductive History - drafter automotive design layout: /Reproductive Hx- drafter automotive design layout Hx Now No 02/12/24 12:55 Gestational Age (in weeks): EDC: Hx Hx Para Hx Section SAB No 02/12/24 12:55 Active Medications Active Medications: Current Medications Generic Name Dose Route Start Last Admin Trade Name Fab PRN Reason Stop Dose Admin Acetaminophen 1,000 mg 02/27/24 07:30 02/27/24 06:38 Acetaminophen 500 Mg Tablet PO 02/27/24 07:31 1,000 mg X1 ONE Administration Cefazolin Sodium 2 gm/ Sodium 110 mls @ 150 mls/hr 02/27/24 07:30 Chloride IV 02/27/24 08:13 PREOP ONE Magnesium Sulfate 1 gm/ 102 mls @ 408 mls/hr 02/27/24 07:30 02/27/24 06:15 Dextrose IV 02/27/24 07:44 408 mls/hr X1 ONE Administration Lactated Ringer's 1,000 mls @ 15 mls/hr 02/27/24 05:45 02/27/24 06:05 IV 15 mls/hr .Q48H JLUIS Administration Insulin Human Lispro 1 - 6 unit 02/27/24 07:30 02/27/24 06:39 Insulin Lispro 100 Unit/Ml Insuln.Pen SC 02/27/24 13:00 4 units Q4H PRN PRN Administration BG>/= 180, SEE PROTOCOL Protocol PFSH Medical History Loss of hearing Wears glasses Wears dentures Alcohol use Diabetes Arthritis Prostate disease High cholesterol Back pain Parkinson's disease Syncope Dietary restriction Smoker Leg cramps History of pain when walking Cardiology follow-up encounter History of echocardiogram History of irregular heartbeat Pure hypercholesterolemia Essential hypertension Syncope and collapse Premature ventricular contractions Hyperlipidemia group home use of drug Nicotine abuse Abnormal stress test Dilated cardiomyopathy Home Medications ?Medication ?Instructions ?Recorded ?Last Taken ?Type aspirin 81 mg chewable tablet 81 mg PO DAILY@0800 SUPPLEMENT 03/27/17 02/21/24 History calcium carbonate (Calcium 500) 1,000 mg PO DAILY SUPPLEMENT 05/13/21 02/26/24 09:00 History atorvastatin 20 mg tablet 20 mg PO QHS CHOLESTEROL #90 tabs 09/13/23 02/26/24 22:15 Rx carbidopa 50 mg-levodopa 200 1 tab PO TID PARKINSON'S 09/13/23 02/27/24 03:30 History mg-entacapone 200 mg tablet metformin 500 mg tablet 500 mg PO BID DIABETES #180 tabs 10/25/23 02/26/24 18:30 Rx blood sugar diagnostic (Blood #50 ea 11/23/23 Unknown Rx Glucose Test strips) blood-glucose meter #1 ea 11/23/23 Unknown Rx lancets (Fingerstix Lancets) #100 ea 11/23/23 Unknown Rx finasteride 5 mg tablet 5 mg PO QHS PROSTATE 02/12/24 02/26/24 19:30 History losartan 25 mg tablet 25 mg PO QHS BP 02/12/24 02/26/24 18:30 History metoprolol tartrate 50 mg tablet 50 mg PO BID HEART 02/12/24 02/27/24 03:30 History tamsulosin 0.4 mg capsule 0.4 mg PO QHS PROSTATE 02/12/24 02/26/24 19:30 History Allergy/AdvReac Type Severity Reaction Status Date / Time No Known Allergies Allergy Verified 02/27/24 06:30 Family History Brother Alcohol abuse Brother Heart disease Myocardial infarction Father Heart disease Myocardial infarction High cholesterol Mother Heart disease Myocardial infarction High cholesterol Sister High cholesterol Surgical History History of cardiac catheterization Hx of circumcision Hx of vasectomy History of tonsillectomy History of cataract extraction Social History Smoking Status: Current every day smoker tobacco type: cigarettes alcohol intake: current alcohol intake frequency: holidays/special occasions only Alcohol type: beer substance use type: does not use what type of physical activity do you participate in: none Review of Systems (Anesthesia) ROS Narrative System reviewed and no additional complaints, except as documented.
--- NOTE | 2024-02-27 07:27 | HP.PCM_ITS ---
History and Physical Date of Admission: 02/27/24 MR#: [id number] Acct: [id number] Name: MITCHEL CARTER Rep #: [id number] : 1950 Provider: Dr. Orion Jimenez MD Age/Sex: 73/M Location: [facility] [place] Status: Signed Intake Vital Signs 09/28/2408:24 01/29/2411:27 Height 6 ft 2 in 6 ft 2 in Weight: 170 lb BMI 21.8 BP 112/62 Blood Pressure Location Lt brachial Position Sitting Respiration 14 Pulse 78 Pulse Source Monitor Temp 97.6 F L Temp Source Temporal Pulse Oximetry (%) 97 Oxygen Delivery Method room air Intake Visit Reasons: lumbar spine Chief Complaint: Pre-Op Lumbar Fusion Accompanied by: Is patient in pain?: Yes Pain scale (1-10): 7 Allergies No Known Allergies Allergy (Verified 02/21/24 09:32) Medications ?Medication ?Instructions ?Recorded ?Confirmed ?Type aspirin 81 mg chewable tablet 81 mg PO DAILY@0800 SUPPLEMENT 03/27/17 02/21/24 History calcium carbonate (Calcium 500) 1,000 mg PO DAILY SUPPLEMENT 05/13/21 02/21/24 History atorvastatin 20 mg tablet 20 mg PO QHS CHOLESTEROL #90 tabs 09/13/23 02/21/24 Rx carbidopa 50 mg-levodopa 200 1 tab PO TID PARKINSON'S 09/13/23 02/21/24 History mg-entacapone 200 mg tablet metformin 500 mg tablet 500 mg PO BID DIABETES #180 tabs 10/25/23 02/21/24 Rx blood sugar diagnostic (Blood #50 ea 11/23/23 02/21/24 Rx Glucose Test strips) blood-glucose meter #1 ea 11/23/23 02/21/24 Rx lancets (Fingerstix Lancets) #100 ea 11/23/23 02/21/24 Rx finasteride 5 mg tablet 5 mg PO QHS PROSTATE 02/12/24 02/21/24 History losartan 25 mg tablet 25 mg PO QHS BP 02/12/24 02/21/24 History metoprolol tartrate 50 mg tablet 50 mg PO BID HEART 02/12/24 02/21/24 History tamsulosin 0.4 mg capsule 0.4 mg PO QHS PROSTATE 02/12/24 02/21/24 History Have you fallen in the past year?: No PFSH Medical History Loss of hearing Wears glasses Wears dentures Alcohol use Diabetes Arthritis Prostate disease High cholesterol Back pain Parkinson's disease Syncope Dietary restriction Smoker Leg cramps History of pain when walking Cardiology follow-up encounter History of echocardiogram History of irregular heartbeat Pure hypercholesterolemia Essential hypertension Syncope and collapse Premature ventricular contractions Hyperlipidemia group home use of drug Nicotine abuse Abnormal stress test Dilated cardiomyopathy Surgical History History of cardiac catheterization Hx of circumcision Hx of vasectomy History of tonsillectomy History of cataract extraction Family History Brother Alcohol abuseBrother Heart disease Myocardial infarctionFather Heart disease Myocardial infarction High cholesterolMother Heart disease Myocardial infarction High cholesterolSister High cholesterol Social History Smoking Status: Current every day smoker tobacco type: cigarettes alcohol intake: current alcohol intake frequency: holidays/special occasions only Alcohol type: beer substance use type: does not use what type of physical activity do you participate in: none HPI lumbar spine Details: This documentation accurately reflects the service provided and the decisions made by me, Dr. Orion Jimenez MD 02/21/24926. Part of today?s visit was documented by Catie Duong ATC, acting as scribe. MITCHEL CARTER is a 73 year old M here today for pre-op 360 lumbar fusion of L4- 5 and left facetectomy DOS 02/27/2024. Patient rates his pain today about a 7/10 and states it is worse when he is walking. Patient states the lumbar spine pain has pretty much stayed the same since the last time he was seen in here. Mitchel continues to have low back pain radiating left lower extremity. His recent visit with PCP he had a POC A1c assessment which was 7.0. He is here for his preop visit. Following his his previous history: 12/15/23: MITCHEL CARTER is a 73 year old M here today for follow up on lumbar spine pain. Pt. advises he had [address] Karimi. the first injection lasted 2 weeks and the second only 2 days. He states his pain continues in his left low back/ hip area. He states his pain radiates down his left leg to his knee. His pain increases with weight bearing and activity. He rates his pain 8/10 when standing/ walking. He would like to discuss next steps. Mitchel continues to have low back pain radiating down to the left lower extremity. His right-sided pain is limited only into the right buttock region. He has Parkinson's disease for which she is having treatment and physical therapy as well. He has had physical therapy for his lower back which did not help. He has had 2 sets of epidural injections now with only temporary relief. Following his his previous history: 10/13/23: MITCHEL CARTER is a 73 year old M here today for MRI review of the lumb ar spine. Pt denies any changes. Lm continues to have difficulty with low back pain radiating to left lower extremity and difficulty walking distances. He is only able to walk around the house now. He has started physical therapy and has had 1 session with continued exercises and is hoping for further sessions. Following his his previous history: 09/29/23: MITCHEL CARTER is a 73 year old M here today for left sciatic pain. Pt. advises he has been experiencing left sciatic pain since July, insidious onset denies injury. He has experienced this before in the past about 2 years ago which resolved after PT and an RX. He was referred by Dr. tatum. He describes it as a constant dull ache in his left low back. He states the sharp pain occurs with activity and extends into his left hip area and down his left leg to his left hamstring. The pain is aggravated with prolonged standing. He states he has numbness from his left knee down his left finley since the sciatica episode 2 years ago. He rates his pain 8/10 with standing. He denies previous back injuries, surgeries or injections. He treats pain at home with tylenol. He was unable to take Meloxicam d/t it raising his BP. Mitchel has had a diagnosis of Parkinson's disease for the last 1.5 years and has tremors that predominately involve the right upper extremity. His previous episode of sciatica which involved the left lower extremity causing numbness in the anterolateral aspect of the left leg was about 2 years ago and is improved with physical therapy. The new episode started in July this year. He denies any history of trauma or doing anything unusual. He tried the same exercises that he tried with physical therapy in the past which seem to help him in the past but not recently. He has not formally seen physical therapy as yet. He has not had any epidural injections or an MRI for the lumbar spine. He continues to have significant left lower extremity radicular pain that goes in the posterior and lateral thigh and also goes into the anterolateral and posterior aspect of the left leg. He also has some pain going to the right buttock and posterior thigh region. He finds himself leaning on the shopping cart when he goes shopping. Ortho Exam General General: Yes no acute distress Neurologic: Yes alert and Yes oriented x3 Spine SPINE TESTING CERVICAL THORACIC LUMBAR Musculoskeletal Strength 0=absent - 5=normal Details: Examination of the back shows midline and left paraspinal tenderness. Neurologic motion of lower extremity shows 5 x 5 power normal shows normal sensations in all dermatomes. Passive straight leg raise test is positive on the left. Coding Level of Care Code Off vis,est,level 4 Diagnoses Spondylolisthesis, lumbar region M43.16 Spinal stenosis of lumbar region with neurogenic claudication M48.062 Time Spent (min) 35 Assessment and Plan Assessment and Plan (1) Spondylolisthesis, lumbar region: Status: Acute (2) Spinal stenosis of lumbar region with neurogenic claudication: Status: Acute Plan I again went over her x-rays and MRI of the lumbar spine done recently. These show L3-S1 disc degeneration. L4-5 spondylolisthesis, L5-S1 disc degeneration with vacuum phenomenon. L4-5 shows dynamic instability. MRI shows severe L4-5 stenosis with left facet synovial cyst. L3-S1 foraminal stenosis noticed this seems worse on the right than the left. I explained to him the imaging findings in detail. Patient has severe stenosis at L4-5 which is contributing to his claudication pain as well as a facet syndrome and cyst which likely is associate with his radiculopathy. I explained to him options for treatment which include continued nonoperative measures versus surgery. He has failed conservative treatment with physical therapy and epidural injections. He wishes to proceed with surgical intervention. Surgical options were discussed. Because of his symptoms being only left-sided, I would limit the surgery to L4-5 only. This will be an L4-5 decompression and fusion. All surgical options were discussed in detail. L4-5 anterior posterior decompression with left partial facetectomy was discussed in detail. All risk benefits and alternatives were discussed. Risk include but not limited to infection, bleeding, injury to nerves and vessels, need for blood transfusion, vascular injury, visceral injury, ileus, hardware failure, pseudoarthrosis, adjacent segment degeneration, DVT, pulm embolism, pneumonia, atelectasis, cardiopulmonary event, nerve injury, foot drop, persistent back pain. Patient understands and agrees to proceed and surgical consent was signed
--- NOTE | 2024-02-27 07:55 | RAD_ITS ---
PROCEDURE: Lumbar spine fusion DATE OF EXAMINATION: 02/27/2024 INDICATION: Male, 73 years old. 360 fusion L4-L5. Facetectomy. FLUOROSCOPY TIME (if supplied): (115.6 seconds) RADIATION DOSAGE (If Supplied By Facility): CTDIvol = ( 43.48 ) mGy, DLP = ( ) mGycm TECHNIQUE: 7 fluoroscopic images of the lumbar spine. 2 views. FINDINGS: There is localization of the L4-L5 level with disc spacer placed. There is been posterior fusion hardware and lateral hardware placed at the L4-L5 level. RAD/Lumbar Spine 2 or 3 Views IMPRESSION: Fluoroscopic guidance for L4-L5 fusion. Please refer to operative report for further information. Electronically Signed: Campos Flower MD at 14:39 EDT ,
[2024-02-27 07:58] LABS: Bedside Glucose 316 mg/dL (74-106)
[2024-02-27] MEDS: Cefazolin 2 GM in 0.9% Normal Saline (100mL Bag) 100 ML IV ×2 (08:05→18:29)
--- NOTE | 2024-02-27 11:33 | OP.PCM_ITS ---
Report of Operation Description of Surgical Findings:: Preoperative diagnosis: L4-5 spondylolisthesis, stenosis with neurogenic claudication Postoperative diagnosis: Same Name of procedures L4-5 oblique lumbar interbody fusion (OLIF), minimally invasive left sided approach, lateral decubitus: ? L4-5 anterolateral spinal fusion [id number] ? L4-5 insertion of cage ? Bone graft aspirate left iliac crest separate incision ? Allograft cancellous chips Attending Surgeon: Dr. Orion Jimenez Estimated blood loss: 50 mL for the entire case Anesthesia: General Complications: None Indications: Patient is a 73-year-old pleasant gentleman who has had a long history of low back pain and left worse than right lower extremity radiation. Xrays & MRI revealed L4-5 unstable spondylolisthesis with stenosis with left facet synovial cyst. After undergoing a prolonged period of nonoperative treatment, the patient elected to undergo surgical decompression & fusion. All surgical options were discussed with the patient including anterior and posterior approaches. All risks and benefits associated with the procedure were explained to the patient. The risks include but are not limited to infection, bleeding, injury to nerves and vessels including major vessels like IVC and aorta, persistent paresthesia, persistent pain, dural tear, need for further procedures, adjacent segment degeneration, pseudoarthrosis, hardware failure, retrograde ejaculation, paralytic ileus, etc. Procedure: The patient was identified in the preoperative holding suite using Unique patient identifiers. Skin was marked, consent was reviewed, and all questions were answered. The patient was then brought back to the operative room. A surgical timeout was performed to make sure correct procedure was being done on the correct patient and all operative room staff were on the same page. General endotracheal anesthesia was then given to the patient. Garg catheter was inserted. The patient was then carefully positioned in right lateral decubitus position with the left side up on a regular OR table. Axillary roll was placed and all bony prominences were well- padded. Hip positioners were placed in the posterior buttocks and anterior sternal area. The surgical area was prepped and draped in usual fashion. Preoperative antibiotic was injected IV as preoperative antibiotic. A final timeout was then again done just before starting the procedure. A 2 inch incision oblique was taken in the left lower quadrant of the abdomen 2 fingerbreadths away from the iliac crest and the lower ribs. Sharp dissection with Bovie was carried out up to the fascia covering the external oblique. The external oblique, internal oblique and transversus abdominis muscles were split along the muscle fibers and retroperitoneal space was entered. Sponge sticks were utilized to move the bowel and peritoneum [id number] and psoas muscle was exposed staying within the retroperitoneal plane. [employer] retractor system was positioned and the retractor blade was applied onto the psoas. The interval between psoas and midline structures was developed and appropriate retractors were placed. Once adequate interval was cleared, a disc space was identified and a marker x-ray was taken. This identified the L4-5 disc level. Annulotomy was done with a long handled knife. Pituitary was used to remove disc material. Curettes were used to prepare the endplates. Disc space spreaders were utilized to distract and increase the disc height. Near complete discectomy was performed. Smaller disc distractors were also used to bluntly perform a contralateral annulotomy. Trials of serially increasing sizes were used. A Jamshidi needle was used to aspirate bone marrow from the left anterior iliac crest through a separate incision and this aspirate was mixed with the allograft bone chips. A Depuy Creswell cage of size of the 18 x 55 x 14 mm with 15 degrees lordosis was packed with corticocancellous allograft bone chips mixed with bone marrow aspirate. This was inserted into the L4-5 disc space. AP and lateral C-arm pictures were taken to confirm good position of the cage. Some bone chips were also packed around the cages. Screw with washer was placed into the lower L4 body with a washer partially covering the cage at L4-5. Hemostasis was confirmed. The retractor blades were removed. Closure was done in layers with a continuous strand of # 1 Vicryl in all muscle layers. 2-0 Vicryl was used for subcutaneous tissue and 4-0 for Monocryl for the skin. Steri-Strips were applied and 4 x 4 gauze and Tegaderm were applied. Surgeon: Orion Jimenez Admit VTE Documentation VTE Mechan Device Prophylaxis: SCD's Procedures Musculoskeletal [id number]: Other Procedure See Report
[2024-02-27] MEDS: Ropivacaine 0.5% 30 ML Vial (11:35)
--- NOTE | 2024-02-27 11:37 | PCM.OPRPT ---
Report of Operation Date of Procedure: 02/27/24 Description of Surgical Findings:: Preoperative diagnosis: L4-5 spondylolisthesis, stenosis with neurogenic claudication Postoperative diagnosis: Same Name of procedures: L4-5 posterior percutaneous pedicle screw instrumented fusion, left L4-5 facetectomy prone: ? L4-5 posterior spinal fusion 34701 ? L4-5 posterior pedicle screw instrumentation 72951 ? L4-5 left facetectomy decompression 46067 ? Allograft cancellous chips [id number] Attending Surgeon: Dr. Orion Jimenez Estimated blood loss: 50 mL (total for entire case) Anesthesia: General Complications: None Description of procedure: After the anterior procedure was complete, the patient was then turned supine. The patient was then transferred to Arun table in prone position. Back was prepped and draped in usual fashion. C-arm AP view was then taken. C-arm was positioned in a way that L4 was centralized and superior endplate of was parallel to the beam. Spinous process was centered between the pedicles. Midline was marked with skin marker and lateral borders of the pedicles were also marked. Skin marker was also utilized to yumiko transversely across the middle of the pedicles at L4. 2 vertical paramedian incisions of 1 inch were placed. The fascia was incised vertically. Finger dissection was utilized to palpate the transverse process and facet joint. Viper Prime screws with towers were inserted and docked onto the transverse processes. This was then slowly moved medially to reach the superior articular process of L4. This was then confirmed on C-arm and then a mallet was utilized to drive the trocar into the pedicle going up to the medial wall of the pedicle on AP view. This was performed both sides. C-arm lateral view confirmed that the tip of the trocar was in the vertebral body, and the screw was advanced into the pedicle and vertebral body. This was repeated similarly at L5 bilaterally. Screw sizes were 7 x 55 mm at L4 and L5 bilaterally. 45 mm precontoured titanium 5.5 mm lordotic rich on Both sides were then passed through the screw extensions and reduced down to the screws with the help of [employer] instrumentation system on both sides. AP and lateral view of the C-arm showed good positioning of the screws and cages. Final tightening with the torque screwdriver was then completed. Adequate irrigation was performed. [place] was utilized to roughen the facet joint at L4-5 on the right side. Cancellous allograft bone chips mixed with bone marrow aspirate were then placed over this decorticated area. MIS tubes were then placed through the incision on the left towards the left L4-5 facet joint with C-arm visualization. Serial dilator tubes were utilized and a tubular retractor of 60 mm length was placed. Bovie was utilized to dissect through muscle tissue to reach the capsule of the L4-5 facet joint on the left. Curved osteotome was utilized to remove a portion of the left L4 inferior articular process to visualize the articular surface of the L5 superior articular process. Further facetectomy was performed by removal of the remainder of the left L4 inferior articular process to drain out the facet cyst and decompress. Once this was achieved, the L5 superior articular process was burred to decorticate. Additional cancellous allograft bone chips mixed with bone marrow aspirate were then placed over this decorticated area. Hemostasis was achieved. Closure was done in layers with 0 Vicryls for the fascia, 2-0 Vicryls for the subcutaneous tissue, and Monocryl for the skin. Dermabond was applied. Dressings were applied covered with Tegaderm. The patient was then turned supine onto a hospital bed. The patient was extubated and taken to PACU in stable condition. The patient tolerated the procedure well and no complications occurred. Depuy Latexo cage & Viper Prime minimally invasive pedicle screw instrumentation system was utilized in this case. No dural tear was identified intraoperatively. I was present for the entirety of the case and performed the surgery. Surgeon: Orion Jimenez customs examiner: Connie Denis Admit VTE Documentation VTE Mechan Device Prophylaxis: SCD's Procedures Musculoskeletal [id number]: Other Procedure See Report
--- NOTE | 2024-02-27 11:53 | PCM.POST.ANE ---
Anesthesia: Postop Eval I Current Vital Signs Temperature: 97 F Pulse Rate: 61 Blood Pressure: 125/77 Respiratory Rate: 18 Pulse Ox: 98 Assessment Airway patent: Yes Spontaneous unlabored respirations: Yes nausea: No Vomiting: No Anesthesia Complication: No Fluid Hydration Crystalloid volume administer (ml): 2,100 Total IV fluid infused: 2,100 Progress Note Anesthesia document: Postop Eval 1 completed: Yes
[2024-02-27 12:13] LABS: Bedside Glucose 165 mg/dL (74-106)
[2024-02-27 12:13] LABS: Bedside Glucose 171 mg/dL (74-106)
[2024-02-27 12:13] LABS: Bedside Glucose 107 mg/dL (74-106)
--- NOTE | 2024-02-27 12:19 | POSTOPAN2_ITS ---
Anesthesia Postop Eval I Sum Postop Eval Completion status Anesthesia document: Postop Eval 1 completed: Yes Anesthesia Postop Eval I Summary Anesthesia Postop Eval I Summary: Anesthesia Postop Eval I: Assessment Summary Airway patent Yes 02/27/24 11:54 [email or web address] Spontaneous unlabored Yes 02/27/24 11:54 UNIVERSITY [email or web address] respirations Mental status nausea No 02/27/24 11:54 UNIVERSITY [email or web address] Vomiting No 02/27/24 11:54 UNIVERSITY [email or web address] Anesthesia Postop Eval I: Fluid Summary Crystalloid volume administer 2,100 02/27/24 11:54 UNIVERSITY [email or web address] (ml) Colloids volume administered ( ml) Blood Product volume administered (ml) Total IV fluid infused 2,100 02/27/24 11:54 UNIVERSITY [email or web address] Anesthesia Postop Eval I: Summary Notes Anesthesia Complication No 02/27/24 11:54 UNIVERSITY [email or web address] Anesthesia Complication Comment: Post-operative progress note Anesthesia: Postop Eval II Evaluation Mental status: Awake Pain Level: 0 nausea: No Vomiting: No
--- NOTE | 2024-02-27 12:19 | PCM.POSTANE2 ---
Anesthesia Postop Eval I Sum Postop Eval Completion status Anesthesia document: Postop Eval 1 completed: Yes Anesthesia Postop Eval I Summary Anesthesia Postop Eval I Summary: Anesthesia Postop Eval I: Assessment Summary Airway patent Yes 02/27/24 11:54 [email or web address] Spontaneous unlabored Yes 02/27/24 11:54 MATERIAL [email or web address] respirations Mental status nausea No 02/27/24 11:54 MATERIAL [email or web address] Vomiting No 02/27/24 11:54 [email or web address] Anesthesia Postop Eval I: Fluid Summary Crystalloid volume administer 2,100 02/27/24 11:54 [email or web address] (ml) Colloids volume administered ( ml) Blood Product volume administered (ml) Total IV fluid infused 2,100 02/27/24 11:54 MATERIAL [email or web address] Anesthesia Postop Eval I: Summary Notes Anesthesia Complication No 02/27/24 11:54 [email or web address] Anesthesia Complication Comment: Post-operative progress note Anesthesia: Postop Eval II Evaluation Mental status: Awake Pain Level: 0 nausea: No Vomiting: No
--- NOTE | 2024-02-27 12:41 | SUR.PHASEI ---
awaiting room on ms3
[2024-02-27] MEDS: Methocarbamol 500 MG Tablet 1000 MG PO ×3 (14:56→22:06)
[2024-02-27] MEDS: Carbidopa/Levodopa/Entacapone 200 1 TAB PO ×2 (14:56→22:07)
[2024-02-27] MEDS: metFORMIN HCl 500 MG Tablet PO (17:05)
[2024-02-27] MEDS: oxyCODONE 5 MG Tablet PO (17:05)
[2024-02-27] MEDS: Ensure Surgery 237 ML LIQUID PO (17:06)
--- NOTE | 2024-02-27 17:37 | PCM.PN.HOSP ---
Reason for Visit Reason for Visit: Diagnoses Encounter for other preprocedural examination (02/27/24) Subjective Subjective Patient was seen at the request of orthopedic surgery, he underwent an L4-5 posterior percutaneous pedicle screw instrumented fusion today due to L4-5 spondylolisthesis and stenosis with neurogenic claudication. Patient has a history of Parkinson's disease, type 2 diabetes, hyperlipidemia, BPH, and essential hypertension. At the time of my examination, patient has no complaints. Objective Data Objective Data Vital Signs: Vital Signs Temp Pulse Resp BP Pulse Ox O2 Del Method O2 Flow Rate 98.0 F 72 18 132/76 H 96 Room Air 4 02/27/24 15:49 02/27/24 15:49 02/27/24 15:49 02/27/24 15:49 02/27/24 15:49 02/27/24 15:49 02/27/24 13:42 Oxygen Flow Rate (L/min) 4 Oxygen Delivery Method Room Air Weight: 76.8 kg Body Mass Index (BMI) 21.7 Intake & Output: Intake and Output for Last 24 Hours 02/25/24 02/26/24 02/27/24 23:59 23:59 23:59 Intake Total 2212 / 2212 Output Total 600 / 600 Balance 1612 / 1612 Lab / Micro Data 02/14/24 09:16 02/14/24 09:16 Labs: Laboratory Results - last 24 hr 02/27/24 06:25: POC Glucose 316 H 02/27/24 08:01: POC Glucose 165 H 02/27/24 09:51: POC Glucose 107 H 02/27/24 11:48: POC Glucose 171 H Micro: Microbiology 02/14/24 09:16 Swab (Method) Nasal Screen MRSA/MSSA - Final Radiography Diagnostic Testing: Radiology Impression Lumbar Spine X-Ray 02/27/24 07:55 IMPRESSION: Fluoroscopic guidance for L4-L5 fusion. Please refer to operative report for further information. Electronically Signed: Campos Flower MD at 14:39 EDT , Physical Exam Const alert, oriented x3 and no apparent distress Constitutional Narrative: Patient has a resting tremor General Appearance: cooperative, well kempt and well developed Orientation / Consciousness: awake, oriented to person, oriented to place and oriented to time HEENT normocephalic, head/scalp atraumatic and moist oral mucous membranes Eyes PERRL, EOMs intact bilaterally and conjunctivae normal Neck supple, no JVD, thyroid normal and no carotid bruits General: trachea midline Resp normal respiratory effort, no retractions, no use of accessory muscles and clear to auscultation bilaterally Auscultation: Negative for rales, rhonchi or wheezes Cardio regular rate, regular rhythm, S1 normal heart sound, S2 normal heart sound, no murmurs, no rub and no gallops GI normal to inspection, nondistended, normoactive bowel sounds, soft to palpation, non-tender and non-distended Extremity no clubbing, cyanosis or edema Skin no rashes or lesions noted General Skin Exam: no breakdown Neuro oriented x3, CN's II-XII intact bilaterally, moves all extremities, no focal motor deficits and no sensory deficits noted Neuro Narrative: Patient has a resting tremor Sensorium / Orientation: awake and alert Speech: speech normal Psych affect normal Assessment & Plan Assessment/Plan (1) T2DM (type 2 diabetes mellitus): PLAN: Plan 1. Type 2 diabetes-patient will remain on metformin, I have ordered fingerstick blood sugars AC with sliding scale insulin for coverage. #2 Parkinson's disease-patient will remain on his home medications #3 essential hypertension-patient will remain on his present medications they will be adjusted as necessary. 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
[2024-02-27] MEDS: Ketorolac 15 MG/ML Vial IV (18:30)
[2024-02-27] MEDS: 0.9% Saline Lock 10 ML Syringe IV (18:30)
[2024-02-27] MEDS: 0.9% Normal Saline (250mL Bag) 250 ML 15 ML IV (18:30)
[2024-02-27] MEDS: Atorvastatin Calcium 20 MG Tablet PO (22:05)
[2024-02-27] MEDS: Losartan Potassium 25 MG Tablet PO (22:05)
[2024-02-27] MEDS: Tamsulosin HCl 0.4 MG Capsule PO (22:05)
[2024-02-27] MEDS: Metoprolol Tartrate 50 MG Tablet PO (22:06)
[2024-02-27] MEDS: Finasteride 5 MG Tablet PO (22:06)
[2024-02-27] MEDS: Senna/Docusate Sodium 1 Tablet 2 TABLET PO (22:07)
[2024-02-28] VITALS (7 sets, daily range): BP systolic 124–163; BP diastolic 57–76; PULSE 71–82; RESP 16; TEMP 36.5–36.9; O2SAT 92–97
[2024-02-28] MEDS: Cefazolin 2 GM in 0.9% Normal Saline (100mL Bag) 100 ML IV (03:10)
[2024-02-28] MEDS: Ketorolac 15 MG/ML Vial IV (03:10)
[2024-02-28] MEDS: Acetaminophen 500 MG Tablet 1000 MG PO ×3 (06:28→21:57)
[2024-02-28] MEDS: Carbidopa/Levodopa/Entacapone 200 1 TAB PO ×3 (06:28→21:58)
[2024-02-28 06:51] LABS: Bedside Glucose 146 mg/dL (74-106)
--- NOTE | 2024-02-28 07:39 | RAD_ITS ---
STUDY: X-RAY - LUMBAR SPINE REASON FOR EXAM: Male, 73 years old. S/p fusion -- pls do Upright AP, Lat TECHNIQUE: 2 view(s) of the lumbar spine were obtained. COMPARISON: Comparison is made with prior study dated September 29, 2023. FINDINGS: Normal lumbar lordosis. There is no substantial scoliosis. There is a normal alignment of the vertebrae. The patient is status post interpedicular screw and rich fixation and prosthetic disc at the L4-L5 level. This space narrowing at the L1-L2, L2-L3 and L5-S1 levels. Aortic calcification. Moderate amount of fecal material is seen in the colon. Calcifications are seen overlying the transverse process of the L2 vertebra on the right. These may represent either renal calculus or mesenteric adenopathy. RAD/Lumbar Spine 2 or 3 Views IMPRESSION: Degenerative changes of the spine, as detailed above. Status post fusion at the L4-L5 level with screw and rich fixation device and prosthetic disc placement. Electronically Signed: Ming Cervantes MD at 12:20 EDT ,
[2024-02-28] MEDS: Calcium (Elemental) 500 MG Tablet 1000 MG PO (07:57)
[2024-02-28] MEDS: Ensure Surgery 237 ML LIQUID PO (07:58)
[2024-02-28 08:01] LABS: Absolute Lymphocyte Count 1.28 X10^3/uL (0.83-4.51); Absolute Neutrophil Count 9.5 X10^3/uL (2.0-7.7); Basophil# 0.03 X10^3/uL; Basophil% 0.2 % (0-1); Eosinophil# 0.01 X10^3/uL; Eosinophils% 0.1 % (0-5); Hematocrit 40.4 % (40-54); Hemoglobin 13.7 g/dL (13.0-16.5); Lymphocyte # 1.28 X10^3/ul (0.83-4.51); Lymphocyte % 10.4 % (19-41); Mean Corp Hgb Conc 33.9 g/dL (32-36); Mean Corpuscular Hgb 32.1 pg (27.0-32.0); Mean Corpuscular Volume 94.6 fL (80-94); Mean Platelet Vol. 9.8 fl (6.2-12.0); Monocyte# 1.41 X10^3/uL; Monocyte% 11.5 % (0-10); NRBC Flagged by Analyzer 0 % (0-5); Neutrophil # 9.49 X10^3/uL (2.7-7.7); Neutrophil % 77.3 % (47-70); Platelet Count 154 K/mm3 (150-450); RBC Distribution Width CV 12.8 % (11.6-14.6); RBC Distribution Width SD 44.3 fl (35.1-43.9); Red Blood Count 4.27 M/mm3 (4.6-6.2); White Blood Count 12.3 K/mm3 (4.4-11.0)
[2024-02-28 08:10] LABS: Anion Gap 7 (5-15); BUN 13 mg/dL (7-18); BUN/Creat Ratio 14.8 RATIO (10-20); Calcium,Total 8.6 mg/dL (8.5-10.1); Chloride 106 mmol/L (98-107); Creatinine, Serum 0.88 mg/dL (0.70-1.30); EST Glomerular Filtration Rate 90 mL/min (>60); Est Glom Filt Rate - Afr Amer 109 mL/min (>60); Estimated Creatinine Clearance 78.79 ml/min; Glucose 136 mg/dL (74-106); Sodium Level 136 mmol/L (136-145)
[2024-02-28] MEDS: Metoprolol Tartrate 50 MG Tablet PO ×2 (09:53→21:57)
[2024-02-28] MEDS: Methocarbamol 500 MG Tablet 1000 MG PO ×4 (09:54→21:56)
[2024-02-28] MEDS: Meloxicam 15 MG Tablet PO (09:54)
[2024-02-28] MEDS: Senna/Docusate Sodium 1 Tablet 2 TABLET PO ×2 (09:58→21:56)
[2024-02-28 12:04] LABS: Bedside Glucose 269 mg/dL (74-106)
--- NOTE | 2024-02-28 12:15 | CASEMGMT ---
KIANA LOPEZ Assessment Face to Face with patient for initial transition planning/care coordination assessment. KIANA LOPEZ introduced self and role at [facility], pt voices understanding. Pt is A&Ox4 and is resting comfortably in the chair and is calm. Pt at bedside. Care providers, pharmacy, and demographics verified. Admitting dx: 360 Lumbar Fusion L4-5 LACE Strata: 1 PCP: Shoaib Velez Specialists: Tony (Ortho), JUNIOR Preferred Pharmacy: [facility] Insurance: [employer] A/B, [place] [employer] Prescription Benefit: Yes LNOK: Mala [place] (W), Shoaib Montana (SON) Living Arrangements: Pt lives with his in a single story home with two steps to enter ADLs/IADLs: Ind Transportation: Self, DME: Working [employer] and supplies. Cane. BP Monitor. Pt denies further DME needs including a FWW HHC/SNF: Denies history or needs Pt?s goal: Home Plan: Home with the continuation of OP Tx. Pt states that he is active with OP Tx for his Parkinson's at 3 separate facilities including [facility], [facility], and . Pt states that he does not need another Rx for this and that he plans to resume this therapy once Dr. Jimenez says that it is OK to do so. Pt denies further needs at this time. Ludy Aragon RN, CM
--- NOTE | 2024-02-28 12:28 | PCM.PN.HOSP ---
Reason for Visit Reason for Visit: Diagnoses Type 2 diabetes mellitus without complications (02/27/24) Encounter for other preprocedural examination (02/27/24) Subjective Subjective Saw patient at bedside this morning, present. Patient was very pleasant, sitting up comfortably in bedside chair, in no acute distress. Reported mild back soreness at incision site but denied any pain or radiculopathy today. Patient did have some urinary tension yesterday evening requiring straight cath and states he has not urinated much on his own yet today. Otherwise denies any acute concerns at this time. Objective Data Objective Data Vital Signs: Vital Signs Temp Pulse Resp BP Pulse Ox O2 Del Method O2 Flow Rate 98.3 F 71 16 124/57 H 93 Room Air 4 02/28/24 07:43 02/28/24 09:53 02/28/24 07:43 02/28/24 07:43 02/28/24 07:43 02/28/24 07:43 02/27/24 13:42 Oxygen Flow Rate (L/min) 4 Oxygen Delivery Method Room Air Weight: 76.8 kg Body Mass Index (BMI) 21.7 Intake & Output: Intake and Output for Last 24 Hours 02/26/24 02/27/24 02/28/24 23:59 23:59 23:59 Intake Total 2322 / 2697 835 / 835 Output Total 600 / 875 1025 / 1025 Balance 1722 / 1822 -190 / -190 Lab / Micro Data 02/28/24 07:42 02/28/24 07:42 Labs: Laboratory Results - last 24 hr 02/28/24 06:26: POC Glucose 146 H 02/28/24 07:42: WBC 12.3 H, RBC 4.27 L, Hgb 13.7, Hct 40.4, MCV 94.6 H, MCH 32.1 H, MCHC 33.9, RDW Std Deviation 44.3 H, RDW Coeff of Samaria 12.8, Plt Count 154, MPV 9.8, Immature Gran % (Auto) 0.500, Neut % (Auto) 77.3 H, Lymph % (Auto) 10.4 L, Hendricks % (Auto) 11.5 H, Eos % (Auto) 0.1, Baso % (Auto) 0.2, Absolute Neuts (auto) 9.5 H, Absolute Lymphs (auto) 1.28, Nucleated RBC % 0, Sodium 136, Potassium 4.0, Chloride 106, Carbon Dioxide 23.0, Anion Gap 7, BUN 13, Creatinine 0.88, Estim Creat Clear Calc 78.79, Est GFR (MDRD) Af Amer 109, Est GFR (MDRD) Non-Af 90, BUN/Creatinine Ratio 14.8, Glucose 136 H, Calcium 8.6 02/28/24 11:40: POC Glucose 269 H Micro: Microbiology 02/14/24 09:16 Swab (Method) Nasal Screen MRSA/MSSA - Final Radiography Diagnostic Testing: Radiology Impression Lumbar Spine X-Ray 02/27/24 07:55 IMPRESSION: Fluoroscopic guidance for L4-L5 fusion. Please refer to operative report for further information. Electronically Signed: Campos Flower MD at 14:39 EDT Reading Location ID and State: [facility] / [place] Tel , Service support , Lumbar Spine X-Ray 02/28/24 07:39 IMPRESSION: Degenerative changes of the spine, as detailed above. Status post fusion at the L4-L5 level with screw and rich fixation device and prosthetic disc placement. Electronically Signed: Ming Cervantes MD at 12:20 EDT , Physical Exam Const alert, oriented x3, no apparent distress and average body habitus Constitutional Narrative: Pleasant elderly male, sitting up comfortably in bedside chair, conversing normally, in no acute distress. General Appearance: cooperative and comfortable HEENT normocephalic, head/scalp atraumatic, hearing grossly normal bilaterally, nasal mucous membranes and turbinates normal and moist oral mucous membranes Eyes PERRL, EOMs intact bilaterally and conjunctivae normal Neck full ROM, no lymphadenopathy and supple Lymph Lymphatic: no lymphadenopathy noted Chest inspection of chest normal Resp normal respiratory effort, normal air movement, no use of accessory muscles and clear to auscultation bilaterally Cardio regular rate, regular rhythm, no murmurs and peripheral pulses 2+ throughout GI normal to inspection, nondistended, normoactive bowel sounds, soft to palpation, non-tender and non-distended Back/Spine normal ROM Extremity normal to inspection, full ROM and no pedal edema Skin no rashes or lesions noted Neuro no focal motor deficits and no sensory deficits noted Speech: speech normal Psych mental status grossly normal Assessment & Plan Assessment/Plan (1) Spinal stenosis of lumbar region with neurogenic claudication: (2) Status post lumbar spinal fusion: (3) Urinary retention: PLAN: Plan Patient is a 73-year-old male who presented to [facility] on for planned lumbar fusion procedure. Medicine consulted postoperatively for medical management. 1. Lumbar stenosis with neurogenic claudication ? Orthopedic surgery primary. S/p L4-5 spinal fusion on 02/[address] Jimenez. Patient tolerated procedure well, no intraoperative complications. PT/OT/case management following. Patient doing well on postop day 1, pain well-controlled and no radiculopathy noted. Passed flatus and tolerating diet without issue. Only thing precluding discharge at this time is concern for urinary retention as noted below; otherwise stable for discharge home with home health care. 2. Postoperative urinary retention, history of BPH with obstructive symptoms ? Required 1 straight cath on evening of procedure with 600 cc out. Has had some urine output but had residual bladder volume of 200 cc on afternoon of 02/27 on bladder scan. Giving small fluid bolus and dose of home Flomax this afternoon; if patient has improvement in retention, will be okay for discharge home. If not, may require further straight cath versus Garg placement. Continue home Flomax and finasteride at night. Chronic medical conditions: ? Type 2 diabetes mellitus: Treating with sliding scale insulin with meals while inpatient. ? Parkinson's disease: Continue home medications. ? Hypertension: Stable, continue home medications. ? Hyperlipidemia: Continue home statin. DVT prophylaxis: Lovenox Total clinical time spent by myself addressing the patient's medical issues, reviewing all the data, and collaborating with patient's care team: 35 minutes. Charges/Coding Visit Charges Inpatient E&M: 84499 Subs Hosp L2
--- NOTE | 2024-02-28 13:16 | PCM.PN.ORT ---
Subjective Subjective Postop day 1 status post L4-5 fusion. Pain well-controlled. Worked with PT. Passed flatus. Tolerated solid diet. Had 1 straight cath overnight. Most recent residual bladder volume was 200 cc per patient. Objective Data Objective Data Vital Signs: Vital Signs Temp Pulse Resp BP Pulse Ox O2 Del Method O2 Flow Rate 98.3 F 71 16 124/57 H 93 Room Air 4 02/28/24 07:43 02/28/24 09:53 02/28/24 07:43 02/28/24 07:43 02/28/24 07:43 02/28/24 07:43 02/27/24 13:42 Oxygen Flow Rate (L/min) 4 Oxygen Delivery Method Room Air Weight: 169 lb 5.04 oz Body Mass Index (BMI) 21.7 Intake & Output: Intake and Output for Last 24 Hours 02/26/24 02/27/24 02/28/24 23:59 23:59 23:59 Intake Total 2322 / 2697 835 / 835 Output Total 600 / 875 1025 / 1025 Balance 1722 / 1822 -190 / -190 Lab / Micro Data 02/28/24 07:42 02/28/24 07:42 Labs: Laboratory Results - last 24 hr 02/28/24 06:26: POC Glucose 146 H 02/28/24 07:42: WBC 12.3 H, RBC 4.27 L, Hgb 13.7, Hct 40.4, MCV 94.6 H, MCH 32.1 H, MCHC 33.9, RDW Std Deviation 44.3 H, RDW Coeff of Samaria 12.8, Plt Count 154, MPV 9.8, Immature Gran % (Auto) 0.500, Neut % (Auto) 77.3 H, Lymph % (Auto) 10.4 L, [place] % (Auto) 11.5 H, Eos % (Auto) 0.1, Baso % (Auto) 0.2, Absolute Neuts (auto) 9.5 H, Absolute Lymphs (auto) 1.28, Nucleated RBC % 0, Sodium 136, Potassium 4.0, Chloride 106, Carbon Dioxide 23.0, Anion Gap 7, BUN 13, Creatinine 0.88, Estim Creat Clear Calc 78.79, Est GFR (MDRD) Af Amer 109, Est GFR (MDRD) Non-Af 90, BUN/Creatinine Ratio 14.8, Glucose 136 H, Calcium 8.6 02/28/24 11:40: POC Glucose 269 H Micro: Microbiology 02/14/24 09:16 Swab (Method) Nasal Screen MRSA/MSSA - Final Radiography Diagnostic Testing: Radiology Impression Lumbar Spine X-Ray 02/27/24 07:55 IMPRESSION: Fluoroscopic guidance for L4-L5 fusion. Please refer to operative report for further information. Electronically Signed: Campos Flower MD at 14:39 EDT , Lumbar Spine X-Ray 02/28/24 07:39 IMPRESSION: Degenerative changes of the spine, as detailed above. Status post fusion at the L4-L5 level with screw and rich fixation device and prosthetic disc placement. Electronically Signed: Ming Cervantes MD at 12:20 EDT , Physical Exam Narrative Dressings CDI. Neurological evaluation of lower extremity shows 5 x 5 power and almost resolved sensations in all dermatomes. Assessment & Plan Assessment/Plan (1) Status post lumbar spinal fusion: PLAN: Plan Postop day 1 status post L4-5 fusion. X-rays done reviewed. PT OT cleared. Passed flatus, tolerating solid diet. Will give IV fluids bolus to confirm adequate bladder evacuation. If clears, okay to go home today, otherwise might need straight cath versus Garg.
[2024-02-28] MEDS: Insulin Lispro 100 UNIT/ML INSULN.PEN SC ×2 (13:21→18:05)
[2024-02-28] MEDS: Tamsulosin HCl 0.4 MG Capsule PO ×2 (13:26→21:59)
[2024-02-28] MEDS: LACTATED RINGERS 500 ML 999 ML IV (13:26)
[2024-02-28 21:23] LABS: Bedside Glucose 171 mg/dL (74-106)
[2024-02-28] MEDS: Losartan Potassium 25 MG Tablet PO (21:57)
[2024-02-28] MEDS: Atorvastatin Calcium 20 MG Tablet PO (21:58)
[2024-02-28] MEDS: Finasteride 5 MG Tablet PO (21:58)
[2024-02-28] MEDS: Lactated Ringers 1,000 ML 75 ML IV (23:48)
[2024-02-29 03:36] VITALS: BP 164/74; PULSE 77; RESP 16; TEMP 36.2; O2SAT 98
[2024-02-29] MEDS: Carbidopa/Levodopa/Entacapone 200 1 TAB PO (06:20)
[2024-02-29] MEDS: Acetaminophen 500 MG Tablet 1000 MG PO (06:20)
[2024-02-29 07:16] LABS: Bedside Glucose 144 mg/dL (74-106)
[2024-02-29 08:55] VITALS: BP 129/67; PULSE 69; RESP 18; TEMP 36.4; O2SAT 95; O2SAT 96
[2024-02-29] MEDS: Methocarbamol 500 MG Tablet 1000 MG PO (08:59)
[2024-02-29] MEDS: Senna/Docusate Sodium 1 Tablet 2 TABLET PO (08:59)
[2024-02-29 09:00] VITALS: PULSE 69
[2024-02-29] MEDS: Metoprolol Tartrate 50 MG Tablet PO (09:00)
[2024-02-29] MEDS: Calcium (Elemental) 500 MG Tablet 1000 MG PO (09:00)
[2024-02-29] MEDS: Meloxicam 15 MG Tablet PO (09:01)
--- NOTE | 2024-02-29 09:25 | PCM.PN.HOSP ---
Subjective Subjective Doing well, no issues overnight. Pain is controlled. Urinated on his own, currently no Garg Objective Data Objective Data Vital Signs: Vital Signs Temp Pulse Resp BP Pulse Ox O2 Del Method O2 Flow Rate 97.5 F L 69 18 129/67 H 96 Room Air 4 02/29/24 08:55 02/29/24 09:00 02/29/24 08:55 02/29/24 08:55 02/29/24 08:55 02/29/24 08:55 02/27/24 13:42 Oxygen Flow Rate (L/min) 4 Oxygen Delivery Method Room Air Weight: 169 lb 5.04 oz Body Mass Index (BMI) 21.7 Intake & Output: Intake and Output for Last 24 Hours 02/28/24 02/29/24 03/01/24 03:59 03:59 03:59 Intake Total 2697 / 2697 2428.75 / 2428.75 1197.5 / 1197.5 Output Total 975 / 975 1800 / 1800 950 / 950 Balance 1722 / 1722 628.75 / 628.75 247.5 / 247.5 Lab / Micro Data 02/28/24 07:42 02/28/24 07:42 Labs: Laboratory Results - last 24 hr 02/28/24 11:40: POC Glucose 269 H 02/28/24 16:47: POC Glucose 171 H 02/29/24 06:18: POC Glucose 144 H Micro: Microbiology 02/14/24 09:16 Swab (Method) Nasal Screen MRSA/MSSA - Final Radiography Diagnostic Testing: Radiology Impression Lumbar Spine X-Ray 02/28/24 07:39 IMPRESSION: Degenerative changes of the spine, as detailed above. Status post fusion at the L4-L5 level with screw and rich fixation device and prosthetic disc placement. Electronically Signed: Ming Cervantes MD at 12:20 EDT , Physical Exam Narrative General: Alert, Oriented x3, Cooperative, No apparent distress HEENT: Atraumatic, PERRLA, EOMI, Normocephalic Oral: Moist Mucosa Neck: Supple, No JVD Lungs: Diminished, Normal air movement, No rhonchi, No wheeze, No rales Cardiovascular: Regular rate, Regular Rhythm, Normal S1, Normal S2, No murmurs Abdomen: Soft, Non Tender, Non-Distended, No Hepato-splenomegaly Extremities: No edema, Capillary Refill Less than 3 Seconds Skin: Dressing CDI Musculoskeletal: No Tenderness to Palpation of Joints or Extremities Neurological: No focal neurological deficits, Motor Exam 5/5 strength throughout, Sensory exam intact to light touch and pain Psych/Mental Status: Normal Affect, Appropriate Assessment & Plan Assessment/Plan (1) Spinal stenosis of lumbar region with neurogenic claudication: (2) Status post lumbar spinal fusion: (3) Urinary retention: PLAN: Plan 1. Lumbar stenosis with neurogenic claudication ? Orthopedic surgery primary. S/p L4-5 spinal fusion on 02/[address] Jimenez. Patient tolerated procedure well, no intraoperative complications. PT/OT/case management following. Patient doing well on postop day 1, pain well-controlled and no radiculopathy noted. Passed flatus and tolerating diet without issue. Only thing precluding discharge at this time is concern for urinary retention as noted below; otherwise stable for discharge home with home health care. 02/29/2024: Medically stable for discharge 2. Postoperative urinary retention, history of BPH with obstructive symptoms ? Required 1 straight cath on evening of procedure with 600 cc out. Has had some urine output but had residual bladder volume of 200 cc on afternoon of 02/27 on bladder scan. Giving small fluid bolus and dose of home Flomax this afternoon; if patient has improvement in retention, will be okay for discharge home. If not, may require further straight cath versus Garg placement. Continue home Flomax and finasteride at night. Chronic medical conditions: ? Type 2 diabetes mellitus: Treating with sliding scale insulin with meals while inpatient. ? Parkinson's disease: Continue home medications. ? Hypertension: Stable, continue home medications. ? Hyperlipidemia: Continue home statin. DVT prophylaxis: Lovenox ? Will sign off Charges/Coding Visit Charges Inpatient E&M: 96806 Subs Hosp L2
== END 2024-02-29 09:29 | disposition home or self-care (01) | DRG 455 ==
LOC: MS3 14:56
PROVIDERS: Anesthesiology; Hospitalist; Admitting Provider Orthopaedic Surgery Orthopaedic Surgery of the Spine; PCP Family Medicine; Referring Provider Orthopaedic Surgery Orthopaedic Surgery of the Spine; Visit Provider Orthopaedic Surgery Orthopaedic Surgery of the Spine
PROC: 0SG03AJ Fusion of Lumbar Vertebral Joint with Interbody Fusion Device, Posterior Approach, Anterior Column, Percutaneous Approach (ICD-10-PCS; principal; 2024-02-27 07:00)
DX: M48.062 Spinal stenosis, lumbar region with neurogenic claudication (principal); E11.9 Type 2 diabetes mellitus without complications; G20.C Parkinsonism, unspecified; I10 Essential (primary) hypertension; F17.200 Nicotine dependence, unspecified, uncomplicated; M51.17 Intervertebral disc disorders with radiculopathy, lumbosacral region; M48.07 Spinal stenosis, lumbosacral region; E78.5 Hyperlipidemia, unspecified; M43.16 Spondylolisthesis, lumbar region; M51.16 Intervertebral disc disorders with radiculopathy, lumbar region; M19.90 Unspecified osteoarthritis, unspecified site; Z79.84 Long term (current) use of oral hypoglycemic drugs; R33.9 Retention of urine, unspecified
CPT/HCPCS: 36415; 72100; 76000; 80048; 82962; 83735; 85025; 86703; 86706; 86708; 86803; 86850; 86900; 86901; 87081; 93005; 94668; 97110; 97116; 97162; 97166; 97530; 99406; A4648; C1713; J7050; J7120; A4216; J2405; J3475

== ENCOUNTER → 2024-03-29 | Outpatient (CLI) | payer MEDICARE, OTHER, SELFPAY ==
--- NOTE | 2024-03-29 12:59 | US_ITS ---
INDICATION: urinary retension EXAMINATION: Ultrasound US Post Void Residual Urine/Bladder TECHNIQUE: [place] scale and color doppler imaging was performed of the urinary bladder. COMPARISON: FINDINGS: No stones or masses. There is posterior wall irregularity of the urinary bladder. Pre-void volume is 417. Post-void volume is 260. Post-void residual is 62%. The prostate is 4.1 x 3.1 x 4.1 cm US/Post Void Residual Bladder IMPRESSION: Significant post void residual in the urinary bladder. Posterior urinary bladder wall irregularity. Electronically Signed: Armand Norris DO at 14:06 EDT Reading Location ID and State: [facility] / [place] Tel [phone], Service support ,
== END | disposition home or self-care (01) ==
LOC: US 12:54
PROVIDERS: PCP Family Medicine; Referring Provider Family Medicine; Visit Provider Family Medicine
DX: R33.9 Retention of urine, unspecified (principal)
CPT/HCPCS: 51798

== ENCOUNTER → 2024-04-24 | Outpatient (CLI) | payer MEDICARE, OTHER, SELFPAY ==
[2024-04-24 12:35] LABS: ALB/GLOB Ratio 1.4 RATIO (0.9-2.4); AST(SGOT) 13 U/L (15-37); Alanine Aminotransfer ALT/SGPT 8 U/L (16-61); Albumin, Serum 3.5 g/dL (3.2-5.0); Alkaline Phosphatase 102 U/L (45-117); Anion Gap 6 (5-15); BUN 14 mg/dL (7-18); BUN/Creat Ratio 15.1 RATIO (10-20); Calcium,Total 9.1 mg/dL (8.5-10.1); Chloride 107 mmol/L (98-107); Cholesterol 147 mg/dL (200); Creatinine, Serum 0.92 mg/dL (0.70-1.30); EST Glomerular Filtration Rate 85 mL/min (>60); Est Glom Filt Rate - Afr Amer 102 mL/min (>60); Globulin 2.5 g/dL (2.2-4.2); Glucose 136 mg/dL (74-106); High Density Lipoprotein 55 mg/dL; PSA,Total - Annual Screen 8.54 ng/mL (0.00-4.00); Potassium 3.8 mmol/L (3.5-5.1); Sodium Level 141 mmol/L (136-145); Triglycerides 122 mg/dL; Very Low Density Lipoprotein 24 mg/dL (5-40)
== END | disposition home or self-care (01) ==
LOC: BIMLAB 09:18
PROVIDERS: PCP Family Medicine; Referring Provider Family Medicine; Visit Provider Family Medicine
DX: E11.9 Type 2 diabetes mellitus without complications (principal); E78.5 Hyperlipidemia, unspecified; M48.062 Spinal stenosis, lumbar region with neurogenic claudication; N40.0 Benign prostatic hyperplasia without lower urinary tract symptoms; Z12.5 Encounter for screening for malignant neoplasm of prostate
CPT/HCPCS: 36415; 80053; 80061; 84153; G0103

== ENCOUNTER → 2024-04-30 | Outpatient (CLI) | payer MEDICARE, OTHER, SELFPAY ==
[2024-04-30 12:56] LABS: Hemoglobin A1c 6.2 % (3.8-5.6)
== END | disposition home or self-care (01) ==
LOC: BIMLAB 10:07
PROVIDERS: PCP Family Medicine; Referring Provider Family Medicine; Visit Provider Family Medicine
DX: R73.09 Other abnormal glucose (principal)
CPT/HCPCS: 36415; 83036

== ENCOUNTER 2024-05-01 13:00 | Outpatient (RCR) | payer MEDICARE, OTHER, SELFPAY ==
--- NOTE | 2024-03-28 12:29 | HP.PTEVAL_ITS ---
Patient's Visit Information Visit Information Visit Information: RHONDA CARTER is a 73 year old M referred to Physical Therapy by Dr. Orion Jimenez MD with a diagnosis of s/p L fusion on 02/27/24. Date of Evaluation: 03/28/24 Physical Therapist: ERVIN Way Visit Plan Frequency: 2x /Week Duration: 2 Months Plan: 2X/ week for 4-8 weeks for neutral spine core stability starting in supine and then progressing, HS stretches, gait training, functional strength with HEP. Pt has BLT restrictions (gallon of milk at this time). HEP: supine pelvic tilt Subjective Subjective: Pt had surgery on Feb [address] Jimenez and he had L4/L5 spinal fusion. No brace. Pt just has stiffness across the 2 back incisions. No NO BLT greater than gallon of milk. He gets a bone stimulator this afternoon. He goes back 04-09-[address] He is sleeping ok as far as back pain. His bladder has been terrible (a lot of freq and loss of control). He has a bladder scan tomm. He had a test for an infection and it was clear. He is not peeing blood or anything. He has no weakness in his legs. He is having trouble tying his shoes and washing his feet etc. He is good with sit to stand, rolling over in bed. He is using his zero turn yeast culture developer per Dr Jimenez. Pain back pain: Pain Intensity (Out of 10): 0 Objective Objective: Gait: walks with slight veering Trunk AROM: NT due to BLT restrictions LE MMT: R hip flex 15.8 and L 15 R knee ext 15.4 and L 15 R knee flex 7.6 and L 7.8 Pt is able to walk on heels and toes R hip abd in supine 13.3 and L 9.8 Bridge: 1/2 normal ROM (stiffness) Able to do a PT in supine with some LB stiffness Balance/Special Test Scores Oswestry Low Back Score: 4 Goals Goal 1:: I HEP for neutral spine core stability Goal Time Frame: 6-8 Weeks Goal 2:: Be able to put socks and shoes on with more ease Goal Time Frame: 6-8 Weeks Goal 3:: Be able to return to exercise classes and gym routine without pain or issue by discharge Goal Time Frame: 6-8 Weeks Goal 4:: Be able to restore full Trunk AROM by discharge without pain (when BLT restrictions are lifted) Rehabilitation Potential Rehabilitation Potential: Good Anticipated Interventions Patient/Client Instruction: Educate patient on: Condition and Plan of Care For the Purpose of:: To decrease pain, To increase ROM, To improve nutrient delivery to tissue, To improve muscle performance and motor function, To improve ability to perform ADL's, To increase tolerance to activity/condition/position, To improve performance and independence with ADL's, To decrease level of supervision to perform tasks, To improve ability of physical actions for home/community/work/leisure, To improve gait and locomotor functions, To improve health of tissue, To decrease soft tissue restriction, To increase flexibility/ROM, To improve balance and To improve safety with gait Therapeutic Exercise to Include: Strength training, Endurance training, Balance training, Body mechanics, Postural training, Flexibilty training, Gait and locomotor training, Neuromotor development, Active ROM, Dynamic Lumbar Stabilization and Scapular Strength/Stabilization For the Purpose of:: To decrease pain, To decrease swelling/inflammation, To increase ROM, To improve nutrient delivery to tissue, To increase oxygenation perfusion, To improve muscle performance and motor function, To improve ability to perform ADL's, To increase tolerance to activity/condition/position, To improve performance and independence with ADL's, To decrease level of supervision to perform tasks, To improve ability of physical actions for home/community/work/leisure, To improve gait and locomotor functions, To improve health of tissue, To decrease soft tissue restriction, To increase flexibility/ROM, To improve endurance, To improve balance and To improve safety with gait Cryotherapy (ice pack, ice massage): Yes Thermo therapy (hot pack): Yes For the Purpose of:: To decrease pain, To decrease swelling/inflammation, To increase ROM and To improve nutrient delivery to tissue Text: Thank you for the opportunity to evaluate your patient. For Medicare and Medicare HMO plans, please review the plan of care and approve it. It will need to be FAXED BACK to us at [phone] for Medicare purposes. For Medicare only, by signing this I certify the plan of care. Please let me know if there are questions or concerns regarding this plan of care. Physician Signature: Date:
--- NOTE | 2024-05-01 13:47 | HP.PTDCSUM ---
Discharge Summary D/C summary: It has been my pleasure to treat ROHNDA CARTER referred by Dr. Orion Jimenez MD, with the diagnosis of s/p L fusion on 02/27/24 for a total of 10 visit(s). Discharge Date: 05/01/24 Please see the following information for a summary of their discharge status. Subjective Subjective: Pt sees the surgeon in 4 weeks. He still has a 16# weight limit. He is back to his exercise classes but watching his BLT restrictions Pain back pain: Pain Intensity (Out of 10): 2 Overall Improvement % Improvement: 90 Objective Objective/Function: Pt has full understanding of HEP and gym routine and was provided copy of weights and machine numbers out in the gym Goals Goal 1:: I HEP for neutral spine core stability Goal Progress: Goal Met Goal 2:: Be able to put socks and shoes on with more ease Goal Progress: Goal Met Goal 3:: Be able to return to exercise classes and gym routine without pain or issue by discharge Goal Progress: Goal Met Goal 4:: Be able to restore full Trunk AROM by discharge without pain (when BLT restrictions are lifted) Plan Plan: DC PT to HEP/H&W routine D/C Information Discharge Comments: DC PT to HEP/H&W routine d/c sentence: If there are questions or concerns regarding this patient's physical therapy, please feel free to call me at [phone]. Thank you for the referral of this patient. Sincerely, Tamar Bullard, MPT Balance/Gait/Functional tests Balance/Special Test Scores Oswestry Low Back Score: 0 Improvement % Improvement: 90
== END 2024-05-01 19:00 | disposition home or self-care (01) ==
LOC: PT 13:00
PROVIDERS: PCP Family Medicine; Visit Provider Orthopaedic Surgery Orthopaedic Surgery of the Spine
DX: Z98.1 Arthrodesis status (principal)
CPT/HCPCS: 97110; 97161; 97530

== ENCOUNTER → 2024-07-25 | Outpatient (CLI) | payer MEDICARE, OTHER, SELFPAY ==
[2024-07-25 16:50] LABS: PSA,Total- Diagnostic 7.88 ng/mL (0.0-4.0)
== END | disposition home or self-care (01) ==
LOC: BIMLAB 15:25
PROVIDERS: PCP Family Medicine; Referring Provider Urology; Visit Provider Urology
DX: N40.1 Benign prostatic hyperplasia with lower urinary tract symptoms (principal)
CPT/HCPCS: 36415; 84153

== ENCOUNTER → 2024-08-26 | Outpatient (CLI) | payer MEDICARE, OTHER, SELFPAY ==
--- NOTE | 2024-08-26 10:17 | MRI_ITS ---
PROCEDURE: PELVIS W/WO CONTRAST REASON FOR EXAM: Elevated PSA. TECHNIQUE: Multiplanar, multisequence MRI of the prostate was performed before and following intravenous gadolinium-based contrast. Axial, coronal, and sagittal high-resolution T2-weighted images, axial T1-weighted images, diffusion-weighted images with high B value, and dynamic postcontrast fat saturated T1-weighted images were performed. CONTRAST: Clariscan 15 mL COMPARISON: None. FINDINGS: Prostate Volume: 46.7 mL (prostate measures 5.3 x 4.1 x 4.1 cm) Peripheral Zone: 2.4 x 1.7 x 0.9 cm T2 hypointense mass with restricted diffusion spanning the bilateral posteromedial peripheral zones at the mid gland. The mass causes subtle capsular bulging contacting but not invading the rectum. Transitional Zone: Typical BPH nodules Seminal vesicles: Normal and symmetric. Neurovascular bundles: Normal and symmetric. Lymph nodes: Miscellaneous: Bone marrow: No suspicious lesions. Miscellaneous: Small fat containing inguinal hernias. Sigmoid diverticulosis. MRI/Pelvis W/WO Contrast IMPRESSION: 2.4 cm PI-RADS 5 mass in the peripheral zone as described. The mass slightly b ulges the capsule contacting but not invading the rectum. Reading Location: [facility]
[2024-08-26 10:52] LABS: CREATININE FINGERSTICK < 1.0 mg/dL (0.70-1.30); EGFR FINGERSTICK > 60.0000 mL/min (>60)
== END | disposition home or self-care (01) ==
LOC: MRI 10:13
PROVIDERS: PCP Family Medicine; Referring Provider Urology; Visit Provider Urology
DX: R97.20 Elevated prostate specific antigen [PSA] (principal)
CPT/HCPCS: 72197; A9575

== ENCOUNTER → 2024-09-03 | Outpatient (CLI) | payer MEDICARE, OTHER, SELFPAY ==
--- NOTE | 2024-09-03 13:00 | PROSBIL_PTH ---
PATIENT: RHONDA CARTER LOC: [facility] U#:[id number] AGE/SX: 74/M ROOM: RE09/03/[address]: Dr. Hai Esquivel MD : 1950 BED: DIS: 09/03/2024 SPEC #: [id number] RECD: 09/03/24 15:33 STATUS: ALTAGRACIA REJimmy #: [id number] JOSELITO: 09/03/24 13:[address]: Hai Esquivel DEPT: SURGICAL PATHOLOGY RECD BY: Yan Mcpherson ENTERED: 09/04/24 09:39 SP TYPE: PROST BX PATIENCE DR: Dr. Shoaib Velez, DO Tissues: PROSTATE LEFT Procedures: PROSTATE BX HEADER OPERATION: Prostate biopsy PRE-OP DIAGNOSIS: Elevated PSA TISSUE SUBMITTED: Left base MICROSCOPIC DIAGNOSIS Prostate, left base, core biopsy: Prostatic adenocarcinoma. Derek grade: 3+4=7 Number of cores involved: 4/4 Proportion of tissue involved: ~90% Perineural invasion: Not identified. Greatest tumor length: 1 cm Focal high-grade prostatic intraepithelial neoplasia (HGPIN). 09/05/2024 MICROSCOPIC DESCRIPTION Slides are reviewed. GROSS DESCRIPTION Received is one container designated prostate, left base. The specimen consists of four elongated fragments of light garcia-white soft tissue each measuring 1 cm in length and 0.1 cm in diameter. The specimen is totally submitted in two cassettes. 09/04/2024 TC:0 CPT: G0146
== END | disposition home or self-care (01) ==
LOC: LABSPEC 15:42
PROVIDERS: PCP Family Medicine; Referring Provider Urology; Visit Provider Urology
DX: R97.20 Elevated prostate specific antigen [PSA] (principal)
CPT/HCPCS: 88305; G0416

== ENCOUNTER 2024-10-18 05:21 | Day surgery (SDC) | payer MEDICARE, OTHER, SELFPAY ==
--- NOTE | 2024-10-04 14:39 | PAT.ANE_ITS ---
Pre-Assessment Diagnosis/Proposed Procedure Planned Operative Procedure(s): SPACE OARS AND GOLD MARKERS Anesthesia History Anesthesia History - build and deployment engineer: Anesthesia History - build and deployment engineer Hx Hospitalization No 10/04/24 13:19 Any Problems With Anesthesia No 10/04/24 13:19 Cholinesterase deficiency No 10/04/24 13:19 You/Your Family Experience No 10/04/24 13:19 fever (hyperthermia) with Relationship Recent Exposure to Contagious No 02/27/24 06:00 Disease Does patient have nerve No 10/04/24 13:19 stimulator Patient instructed to have device shut off --Does patient have Pacemaker or ICD? When Was Last Pacemaker Check QUESTION #4 FULL TEXT: You/Your Family Experience fever (hyperthermia) with Anesthesia Last Oral Intake Last Oral intake: Last Oral Intake NPO since Meds taken in AM with sips of water? Meds patient instructed to take am of surgery PONV PONV - build and deployment engineer: PONV - build and deployment engineer Female No 10/04/24 13:19 HX of Motion Sickness No 10/04/24 13:19 HX of N/V After Surgery No 10/04/24 13:19 Non-Smoker No 10/04/24 13:19 Duration of Surgery greater No 10/04/24 13:19 than 60 minutes Number of Risk Factors PONV Score Height & Weight Height & Weight: Anesthesia: Height & Weight Height 6 ft 2 in 09/27/24 10:03 Respiratory Assessment Respiratory Assessment - build and deployment engineer: Respiratory Tract Infection Hx - build and deployment engineer Hx Respiratory Tract Infection No 10/04/24 13:19 STOP Sleep Apnea STOP Sleep Apnea - build and deployment engineer: STOP Sleep Apnea - build and deployment engineer Hx Hypertension Yes: CONTROLLED WITH MEDS 10/04/24 13:19 Hx Sleep Apnea No 10/04/24 13:19 CPAP BIPAP Do you snore loudly (louder No 10/04/24 13:19 than talking or can be heard Do you often feel tired/ No 10/04/24 13:19 fatigued/ sleepy during daytime? Has anyone observed you stop No 10/04/24 13:19 breathing during sleep? STOP Results Negative 10/04/24 13:19 QUESTION #5 FULL TEXT : Do you snore loudly (louder than talking or can be heard through closed doors)? Tobacco Use History Tobacco Use History - build and deployment engineer: Tobacco Use History - build and deployment engineer Tobacco Use Smoking Status Current every day smoker 10/04/24 13:19 Hx Tobacco Use Yes 10/04/24 13:19 Years Smoking Packs Smoked per Day Smoking Cessation Date was within the last 15 years Hx Smoking Cessation Date Hx Smoking Cessation Counseling Hematologic Medial History Hematologic Hx - build and deployment engineer: Hematologic Medical Hx - architectural practice manager Hx of Blood Transfusion No 10/04/24 13:19 Hx of Transfusion in last 3 No 10/04/24 13:19 Months Date of Last Transfusion (if within last 3 months) Ever experience any problems No 10/04/24 13:19 with transfusion(s)? Specify any problems Hx of Preganancy in last 3 N/A 10/04/24 13:19 Months Nurse Filling Out Transfusion DSCHRIBER 10/04/24 13:19 & Questions: Date: 10/04/24 10/04/24 13:19 Time: 13:21 10/04/24 13:19 Patient unable to answer at this time (ie. confused, unrespo /Reproduction History /Reproductive History - build and deployment engineer: /Reproductive Hx- build and deployment engineer Hx Now Gestational Age (in weeks): EDC: Hx Hx Para Hx Section SAB No 10/04/24 13:19 PFSH Medical History (Updated 10/04/24 @ 13:26 by Tangela Casarez) Prostate cancer Urinary retention Loss of hearing Wears glasses Wears dentures Alcohol use Diabetes Arthritis Prostate disease High cholesterol Back pain Parkinson's disease Syncope Dietary restriction Smoker Leg cramps History of pain when walking Cardiology follow-up encounter History of echocardiogram History of irregular heartbeat Pure hypercholesterolemia Essential hypertension Premature ventricular contractions Hyperlipidemia 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 Nicotine abuse Abnormal stress test Dilated cardiomyopathy Home Medications ?Medication ?Instructions ?Recorded ?Last Taken ?Type aspirin 81 mg chewable tablet 81 mg PO DAILY@0800 SUPP LEMENT 03/27/17 02/21/24 History calcium carbonate (Calcium 500) 1,000 mg PO DAILY SUPP LEMENT 05/13/21 02/26/24 09:00 History blood sugar diagnostic (Blood #50 ea 11/23/23 Unknown Rx Glucose Test strips) blood-glucose meter #1 ea 11/23/23 Unknown Rx lancets (Fingerstix Lancets) #100 ea 11/23/23 Unknown Rx metformin 500 mg tablet 500 mg PO BID DIABETES #180 tabs 03/05/24 Unknown Rx finasteride 5 mg tablet 5 mg PO QHS PROSTATE #90 tab s 08/16/24 Unknown Rx losartan 25 mg tablet 25 mg PO DAILY #90 TABLETS 0 08/16/24 Unknown Rx atorvastatin 20 mg tablet 20 mg PO QHS #90 TABLETS 11/15 Unknown Rx metoprolol tartrate 50 mg tablet 50 mg PO BID 90 days #180 tabs 09/25/24 Unknown Rx tamsulosin 0.4 mg capsule 0.4 mg PO BID PROSTATE 09/27 Unknown History trihexyphenidyl 2 mg tablet 2.5 mg PO TID 09/27/24 Unk nown History carbidopa ER 50 mg-levodopa 200 mg 1 tab PO TID Unknown History tablet,extended release Allergy/AdvReac Type Severity Reaction Status Date / Time No Known Allergies Allergy Verified 10/04/24 13:14 Family History Brother Alcohol abuse Brother Heart disease Myocardial infarction Father Heart disease Myocardial infarction High cholesterol Mother Heart disease Myocardial infarction High cholesterol Sister High cholesterol Surgical History (Updated 10/04/24 @ 13:26 by Tangela Casarez) History of lumbar fusion H/O prostate biopsy History of cardiac catheterization Hx of circumcision Hx of vasectomy History of tonsillectomy History of cataract extraction Social History Smoking Status: Current every day smoker tobacco type: cigarettes alcohol intake: current alcohol intake frequency: holidays/special occasions only Alcohol type: beer substance use type: does not use what type of physical activity do you participate in: none Audit: Pertinent Findings Pertinent Findings EKG Perinent findings: 02/14/2024. Sinus rhythm first-degree AV block. Rate 63 bpm. Septal infarct age undetermined. Echo (EF%) pertinent findings: 10/10/2023. Normal size function normal EF 60% Consult pertinent findings: Cardiology 09/06/2023. Syncope, collapse. No recent symptoms. No further testing. Dilated cardiomyopathy. Chronic. EF 55%. Stable at this time. Continue current medical therapy. PVCs. Chronic. Continue metoprolol. Hypertension. Chronic. Well-controlled. Recommendation Anesthesia Recommendation Anesthesia recommendation: OPTIMIZED for anesthesia
[2024-10-18] VITALS (9 sets, daily range): BP systolic 141–164; BP diastolic 72–83; PULSE 53–59; RESP 14–20; TEMP 36.2–36.3; O2SAT 94–98; BMI 22.0
[2024-10-18] MEDS: 0.9% Normal Saline (1000mL) 1,000 ML 15 ML IV (06:12)
[2024-10-18 06:36] LABS: Bedside Glucose 136 mg/dL (74-106)
--- NOTE | 2024-10-18 06:49 | PCM.PRE.AN2 ---
ASA Classification* ASA Classification ASA Classification: 2 Assessment & Plan Anesthesia* Anesthesia Assessment Anesthesia Assessment: Discussed sedation and/or anesthesia options, risks, benefits, and alternatives with patient/parents/legal guardian/POA. Questions invited. The patient/parents/legal guardian/POA seems to understand and agrees to proceed with anesthesia plan. Reviewed the physical assessment, medical history, allergy history and patient home medications list prior to surgery/procedure/anesthetic and documented any changes. Performed airway and anesthesia risk assessments. Anesthesia Type Anesthesia Type: General Anesthesia Focused Assessment* Temperature: 97.1 F Pulse Rate: 56 Blood Pressure: 164/83 Respiratory Rate: 16 Pulse Ox: 98 Airway Assessment Mouth opens: >3 cm Mallampati Score: II Focused Labs Anesthesia Preop lab: CBC WBC 12.3 K/mm3 (4.4-11.0) H 02/28/24 07:42 02/28/24 RBC 4.27 M/mm3 (4.6-6.2) L 02/28/24 07:42 02/28/24 Hgb 13.7 g/dL (13.0-16.5) 02/28/24 07:42 02/28/24 Hct 40.4 % (40-54) 02/28/24 07:42 02/28/24 Plt Count 154 K/mm3 (150-450) 02/28/24 07:42 02/28/24 CHEMISTRY Potassium 3.8 mmol/L (3.5-5.1) 04/24/24 09:18 04/24/24 Sodium 141 mmol/L (136-145) 04/24/24 09:18 04/24/24 Magnesium 2.0 mg/dL (1.6-2.6) 02/14/24 09:16 02/14/24 BUN 14 mg/dL (7-18) 04/24/24 09:18 04/24/24 Creatinine 0.92 mg/dL (0.70-1.30) 04/24/24 09:18 04/24/24 Glucose 136 mg/dL (74-106) H 04/24/24 09:18 04/24/24 POC Glucose 136 mg/dL (74-106) H 10/18/24 05:59 10/18/24 TSH 1.45 uIU/mL (0.358-3.74) 02/19/15 15:30 02/19/15 COAG PT 12.9 SECONDS (11.7-14.9) 02/27/15 12:29 02/27/15 Pre-Assessment Diagnosis/Proposed Procedure Planned Operative Procedure(s): SPACE OARS AND GOLD MARKERS Anesthesia History Anesthesia History - grinder operator tool: Anesthesia History - grinder operator tool Hx Hospitalization No 10/04/24 13:19 Any Problems With Anesthesia No 10/04/24 13:19 Cholinesterase deficiency No 10/04/24 13:19 You/Your Family Experience No 10/04/24 13:19 fever (hyperthermia) with Relationship Recent Exposure to Contagious No 10/18/24 06:04 Disease Does patient have nerve No 10/04/24 13:19 stimulator Patient instructed to have device shut off --Does patient have Pacemaker No 10/18/24 06:05 or ICD? When Was Last Pacemaker Check QUESTION #4 FULL TEXT: You/Your Family Experience fever (hyperthermia) with Anesthesia Last Oral Intake Last Oral intake: Last Oral Intake NPO since 22:00 10/18/24 06:05 Meds taken in AM with sips of Yes 10/18/24 06:05 water? Meds patient instructed to take am of surgery PONV PONV - grinder operator tool: PONV - grinder operator tool Female No 10/04/24 13:19 HX of Motion Sickness No 10/04/24 13:19 HX of N/V After Surgery No 10/04/24 13:19 Non-Smoker No 10/04/24 13:19 Duration of Surgery greater No 10/04/24 13:19 than 60 minutes Number of Risk Factors PONV Score Height & Weight Height & Weight: Anesthesia: Height & Weight Height 6 ft 2 in 10/18/24 06:05 Weight: 77.927 kg 10/18/24 06:05 Body Mass Index (BMI) 22.0 10/18/24 06:05 Respiratory Assessment Respiratory Assessment - grinder operator tool: Respiratory Tract Infection Hx - grinder operator tool Hx Respiratory Tract Infection No 10/04/24 13:19 STOP Sleep Apnea STOP Sleep Apnea - grinder operator tool: STOP Sleep Apnea - grinder operator tool Hx Hypertension Yes: CONTROLLED WITH MEDS 10/04/24 13:19 Hx Sleep Apnea No 10/04/24 13:19 CPAP BIPAP Do you snore loudly (louder No 10/04/24 13:19 than talking or can be heard Do you often feel tired/ No 10/04/24 13:19 fatigued/ sleepy during daytime? Has anyone observed you stop No 10/04/24 13:19 breathing during sleep? STOP Results Negative 10/04/24 13:19 QUESTION #5 FULL TEXT : Do you snore loudly (louder than talking or can be heard through closed doors)? Tobacco Use History Tobacco Use History - grinder operator tool: Tobacco Use History - grinder operator tool Tobacco Use Smoking Status Current every day smoker 10/04/24 13:19 Hx Tobacco Use Yes 10/04/24 13:19 Years Smoking Packs Smoked per Day Smoking Cessation Date was within the last 15 years Hx Smoking Cessation Date Hx Smoking Cessation Counseling Hematologic Medial History Hematologic Hx - grinder operator tool: Hematologic Medical Hx - printed circuit board panels plater Hx of Blood Transfusion No 10/04/24 13:19 Hx of Transfusion in last 3 No 10/04/24 13:19 Months Date of Last Transfusion (if within last 3 months) Ever experience any problems No 10/04/24 13:19 with transfusion(s)? Specify any problems Hx of Preganancy in last 3 N/A 10/04/24 13:19 Months Nurse Filling Out Transfusion DSCHRIBER 10/04/24 13:19 & Questions: Date: 10/04/24 10/04/24 13:19 Time: 13:21 10/04/24 13:19 Patient unable to answer at this time (ie. confused, unrespo /Reproduction History /Reproductive History - grinder operator tool: /Reproductive Hx- grinder operator tool Hx Now Gestational Age (in weeks): EDC: Hx Hx Para Hx Section SAB No 10/04/24 13:19 Active Medications Active Medications: Current Medications Generic Name Dose Route Start Last Admin Trade Name Freq PRN Reason Stop Dose Admin Cefazolin Sodium 2 gm/ N/A 20 mls @ 400 mls/hr 10/18/24 15:25 IV 10/18/24 15:27 PREOP ONE Sodium Chloride 1,000 mls @ 15 mls/hr 10/18/24 05:45 10/18/24 06:12 IV 15 mls/hr .Q48H JLUIS Administration PFSH Medical History Prostate cancer Urinary retention Loss of hearing Wears glasses Wears dentures Alcohol use Diabetes Arthritis Prostate disease High cholesterol Back pain Parkinson's disease Syncope Dietary restriction Smoker Leg cramps History of pain when walking Cardiology follow-up encounter History of echocardiogram History of irregular heartbeat Pure hypercholesterolemia Essential hypertension Premature ventricular contractions Hyperlipidemia alf use of drug Nicotine abuse Abnormal stress test Dilated cardiomyopathy Home Medications ?Medication ?Instructions ?Recorded ?Last Taken ?Type aspirin 81 mg chewable tablet 81 mg PO DAILY@0800 SUPPLEMENT 03/27/17 10/07/24 History calcium carbonate (Calcium 500) 1,000 mg PO DAILY SUPPLEMENT 05/13/21 10/17/24 History blood sugar diagnostic (Blood #50 ea 11/23/23 Unknown Rx Glucose Test strips) blood-glucose meter #1 ea 11/23/23 Unknown Rx lancets (Fingerstix Lancets) #100 ea 11/23/23 Unknown Rx metformin 500 mg tablet 500 mg PO BID DIABETES #180 tabs 03/05/24 10/18/24 05:00 Rx finasteride 5 mg tablet 5 mg PO QHS PROSTATE #90 tabs 08/16/24 10/17/24 Rx atorvastatin 20 mg tablet 20 mg PO QHS #90 TABLETS 08/27/24 10/17/24 Rx metoprolol tartrate 50 mg tablet 50 mg PO BID 90 days #180 tabs 09/25/24 10/18/24 05:00 Rx tamsulosin 0.4 mg capsule 0.4 mg PO BID PROSTATE 09/27/24 10/18/24 05:00 History trihexyphenidyl 2 mg tablet 2.5 mg PO TID 09/27/24 10/18/24 05:00 History carbidopa ER 50 mg-levodopa 200 mg 1 tab PO TID 10/04/24 10/18/24 05:00 History tablet,extended release ciprofloxacin HCl 500 mg tablet 500 mg PO DAILY 10/18/24 10/18/24 05:00 History losartan 25 mg tablet 25 mg PO QHS 10/18/24 10/17/24 History Allergy/AdvReac Type Severity Reaction Status Date / Time No Known Allergies Allergy Verified 10/18/24 06:00 Family History Brother Alcohol abuse Brother Heart disease Myocardial infarction Father Heart disease Myocardial infarction High cholesterol Mother Heart disease Myocardial infarction High cholesterol Sister High cholesterol Surgical History History of lumbar fusion H/O prostate biopsy History of cardiac catheterization Hx of circumcision Hx of vasectomy History of tonsillectomy History of cataract extraction Social History Smoking Status: Current every day smoker tobacco type: cigarettes alcohol intake: current alcohol intake frequency: holidays/special occasions only Alcohol type: beer substance use type: does not use what type of physical activity do you participate in: none Review of Systems (Anesthesia) ROS Narrative System reviewed and no additional complaints, except as documented.
[2024-10-18] MEDS: Cefazolin 2 GM in Syringe IV (07:30)
--- NOTE | 2024-10-18 07:59 | DCINST_ITS ---
Discharge Instructions Diet Discharge Diet: No restrictions DC O2, CPAP, BIPAP needs Home O2 Discharge instructions: No Dressing / Incision Discharge Activity: Return to Normal Activity and May Not Drive (while taking narcotic pain medications.) Dressing / Incision Call your doctor if you observe: Fever of 101 or Higher Follow Up Care Please Follow Up With: Hai Esquivel MD When: Call [phone] for an appointment Test Results: Test results from this visit will be discussed in further detail at your follow- up appointment, if applicable. Discharge Plan Admission Primary Reason for Your Visit: markers and spacer gel Attending Provider: Hai Esquivel Primary Care Provider: Shoaib Velez Instructions Print Language: Mexican Discharge Orders/Prescriptions Prescriptions: Continued calcium carbonate [Calcium 500] 500 mg calcium (1,250 mg) tablet 1,000 mg PO DAILY metformin 500 mg tablet 500 mg PO BID Qty: 180 1RF trihexyphenidyl 2 mg tablet 2.5 mg PO TID aspirin 81 MG tablet,chewable 81 mg PO DAILY@0800 tamsulosin 0.4 mg capsule 0.4 mg PO BID carbidopa-levodopa 50-200 mg tablet extended release 1 tab PO TID ciprofloxacin HCl 500 mg tablet 500 mg PO DAILY losartan 25 mg tablet 25 mg PO QHS (DME) blood-glucose meter Misc See Rx Instructions .Route Qty: 1 2RF Rx Instructions: Monitor fasting blood glucose daily in the morning (DME) lancets [Fingerstix Lancets] Misc See Rx Instructions .Route Qty: 100 4RF Rx Instructions: As directed to check blood glucose once daily for elevated glucose level (DME) Blood Glucose Test Strip See Rx Instructions .Route Qty: 50 4RF Rx Instructions: As directed to check blood glucose daily for elevated glucose level finasteride 5 mg tablet 5 mg PO QHS Qty: 90 2RF atorvastatin 20 mg tablet 20 mg PO QHS Qty: 90 3RF metoprolol tartrate 50 mg tablet 50 mg PO BID 90 Days Qty: 180 3RF Referrals / Follow Up: Shoaib Velez DO [Primary Care Provider] - Hai Esquivel MD [Med Staff - Active Staff] - Disposition Disposition (needs filled in before D/C Order can be placed): Home, Self Care
--- NOTE | 2024-10-18 07:59 | PCM.HP.STD ---
HPI - General General Date of Service: 10/18/24 Chief Complaint: Prostate cancer HPI Narrative RHONDA CARTER, is a 74 M who presents placement of gold markers and spacer gel [facility] Medical History Prostate cancer Urinary retention Loss of hearing Wears glasses Wears dentures Alcohol use Diabetes Arthritis Prostate disease High cholesterol Back pain Parkinson's disease Syncope Dietary restriction Smoker Leg cramps History of pain when walking Cardiology follow-up encounter History of echocardiogram History of irregular heartbeat Pure hypercholesterolemia Essential hypertension Premature ventricular contractions Hyperlipidemia half-way use of drug Nicotine abuse Abnormal stress test Dilated cardiomyopathy Home Medications ?Medication ?Instructions ?Recorded ?Last Taken ?Type aspirin 81 mg chewable tablet 81 mg PO DAILY@0800 SUPPLEMENT 03/27/17 10/07/24 History calcium carbonate (Calcium 500) 1,000 mg PO DAILY SUPPLEMENT 05/13/21 10/17/24 History blood sugar diagnostic (Blood #50 ea 11/23/23 Unknown Rx Glucose Test strips) blood-glucose meter #1 ea 11/23/23 Unknown Rx lancets (Fingerstix Lancets) #100 ea 11/23/23 Unknown Rx metformin 500 mg tablet 500 mg PO BID DIABETES #180 tabs 03/05/24 10/18/24 05:00 Rx finasteride 5 mg tablet 5 mg PO QHS PROSTATE #90 tabs 08/16/24 10/17/24 Rx atorvastatin 20 mg tablet 20 mg PO QHS #90 TABLETS 08/27/24 10/17/24 Rx metoprolol tartrate 50 mg tablet 50 mg PO BID 90 days #180 tabs 09/25/24 10/18/24 05:00 Rx tamsulosin 0.4 mg capsule 0.4 mg PO BID PROSTATE 09/27/24 10/18/24 05:00 History trihexyphenidyl 2 mg tablet 2.5 mg PO TID 09/27/24 10/18/24 05:00 History carbidopa ER 50 mg-levodopa 200 mg 1 tab PO TID 10/04/24 10/18/24 05:00 History tablet,extended release ciprofloxacin HCl 500 mg tablet 500 mg PO DAILY 10/18/24 10/18/24 05:00 History losartan 25 mg tablet 25 mg PO QHS 10/18/24 10/17/24 History Allergy/AdvReac Type Severity Reaction Status Date / Time No Known Allergies Allergy Verified 10/18/24 06:00 Family History Brother Alcohol abuse Brother Heart disease Myocardial infarction Father Heart disease Myocardial infarction High cholesterol Mother Heart disease Myocardial infarction High cholesterol Sister High cholesterol Surgical History History of lumbar fusion H/O prostate biopsy History of cardiac catheterization Hx of circumcision Hx of vasectomy History of tonsillectomy History of cataract extraction Social History Smoking Status: Current every day smoker tobacco type: cigarettes alcohol intake: current alcohol intake frequency: holidays/special occasions only Alcohol type: beer substance use type: does not use what type of physical activity do you participate in: none Vital Signs Vital Signs Vital Signs: 10/18/24 06:04 10/18/24 06:05 10/18/24 06:49 Temperature 97.1 F L 97.1 F L Temperature Source Temporal Pulse Rate 56 L 56 L Respiratory Rate 16 16 Respiratory Pattern Normal Blood Pressure 164/83 H 164/83 H Blood Pressure Mean 110 Blood Pressure Source Monitor Blood Pressure Position Semi-Fowlers Blood Pressure Location Left Arm Pulse Ox 98 98 Oxygen Delivery Method Room Air Weight Weight: 77.927 kg Body Mass Index (BMI) 22.0 Results Lab / Micro Data Labs: Laboratory Results - last 24 hr 10/18/24 05:59: POC Glucose 136 H
--- NOTE | 2024-10-18 08:00 | PCM.OPRPT ---
Operative Report (Standard) Operative Information Date of Procedure: 10/18/24 Pre-Operative Diagnosis: Prostate cancer Post-Operative Diagnosis: The same Surgery/Procedure Performed: Gold markers placed and spacer gel placed social media marketing analyst: No Type of Anesthesia: General RN Documented Start/Stop Times: Operation Date: 10/18/24 07:30 Case Time Into Pre-Op 10/18/24 05:40 Out of Pre-Op 10/18/24 07:19 Anesthesia Start 10/18/24 07:21 Into Room 10/18/24 07:21 Procedure Start 10/18/24 07:46 Procedure End 10/18/24 07:50 Anesthesia End 10/18/24 07:55 Out of Room 10/18/24 07:55 Into Recovery 10/18/24 07:57 Procedure Start Time: 07:46 Procedure Stop Time: 08:00 Select all DRAINS/GRAFTS/IMPLANTS that apply: None Estimated Blood Loss: 0 Specimen collected: No Description of surgery: In the preoperative area I reviewed with the patient how the procedure is done we talked about the risk of the procedure including the risk of infection, bleeding, migration of the spacer gel, the patient is planning to have radiation to the prostate he understands that the spacer gel has demonstrated benefit in reducing the risk of toxicity from the ration radiation to the rectum but there is no guarantees that this spacer gel will prevent any serious complications or toxicity to the rectum or bowels. After reviewing this with the patient and his family organ to proceed with placement of a spacer gel matrix. Patient was taken back to the operating room after smooth induction of anesthesia he was placed supine on the table. The genitals and perineum were prepped and draped in usual sterile fashion. I then introduced a biplanar ultrasound probe into the rectum and performed ultrasonography and identified the Denonvilliers' fascia the prostate mid base and apex and seminal vesicles. The spacer gel mix was then prepared on the back table per manufactures instruction. Under ultrasound guidance in the midline perineum a bevel needle down we advanced through the perineum below the prostate into the space of Denonvilliers' fascia. This space which could be identified by ultrasound with a bright white layer between the prostate and the rectum. I then injected a puff of normal saline to identify the space further. After I confirmed that the needle was in the correct space in the mid prostate and the space of Denonvilliers' fascia between the rectum and the prostate. Then over the course of 15 seconds the gel matrix was injected slowly there was nice separation between the prostate and the rectum at the gel matrix was injected. The position of the gel matrix was confirmed by ultrasound. Then the injection needle was removed intact. The penis and testicles were prepped and draped in usual sterile fashion, ultrasound probe was placed into the rectum and biplanar ultrasound was performed on the prostate. Identified the base mid and apex of the prostate identified the transition zone prostate. Then using a needle the first gold prospector was placed into the right base of the prostate, the second gold prospector was placed in the left base of the prostate, and the third core marker was placed in the right apex of the prostate after all 3 markers were placed the placement of the markers were confirmed by ultrasonography. Surgical Findings: . Complications Complications: No Admit VTE Documentation VTE Present on Admission: No VTE Mechan Device Prophylaxis: SCD's VTE Pharm Prophylaxis ordered?: No
--- NOTE | 2024-10-18 08:05 | PCM.POST.ANE ---
Anesthesia: Postop Eval I Current Vital Signs Temperature: 97.3 F Pulse Rate: 54 Blood Pressure: 143/79 Respiratory Rate: 20 Pulse Ox: 95 Assessment Airway patent: Yes Spontaneous unlabored respirations: Yes nausea: No Vomiting: No Anesthesia Complication: No Fluid Hydration Crystalloid volume administer (ml): 500 Total IV fluid infused: 500 Progress Note Anesthesia document: Postop Eval 1 completed: Yes
--- NOTE | 2024-10-18 08:32 | POSTOPAN2_ITS ---
Anesthesia Postop Eval I Sum Postop Eval Completion status Anesthesia document: Postop Eval 1 completed: Yes Anesthesia Postop Eval I Summary Anesthesia Postop Eval I Summary: Anesthesia Postop Eval I: Assessment Summary Airway patent Yes 10/18/24 08:09 [email or web address] Spontaneous unlabored Yes 10/18/24 08:09 [email or web address] respirations Mental status nausea No 10/18/24 08:09 [email or web address] Vomiting No 10/18/24 08:09 [email or web address] Anesthesia Postop Eval I: Fluid Summary Crystalloid volume administer 500 10/18/24 08:09 [email or web address] (ml) Colloids volume administered ( ml) Blood Product volume administered (ml) Total IV fluid infused 500 10/18/24 08:09 [email or web address] Anesthesia Postop Eval I: Summary Notes Anesthesia Complication No 10/18/24 08:09 [email or web address] [email or web address] Anesthesia Complication Comment: Post-operative progress note Anesthesia: Postop Eval II Evaluation Mental status: Awake Pain Level: 0 nausea: No Vomiting: No
--- NOTE | 2024-10-18 08:32 | PCM.POSTANE2 ---
Anesthesia Postop Eval I Sum Postop Eval Completion status Anesthesia document: Postop Eval 1 completed: Yes Anesthesia Postop Eval I Summary Anesthesia Postop Eval I Summary: Anesthesia Postop Eval I: Assessment Summary Airway patent Yes 10/18/24 08:09 TRUCK REPAIR SERVICE [email or web address] Spontaneous unlabored Yes 10/18/24 08:09 TRUCK REPAIR SERVICE ESTIMATOR.[email or web address] respirations Mental status nausea No 10/18/24 08:09 TRUCK REPAIR SERVICE ESTIMATOR.[email or web address] Vomiting No 10/18/24 08:09 TRUCK REPAIR SERVICE ESTIMATOR.[email or web address] Anesthesia Postop Eval I: Fluid Summary Crystalloid volume administer 500 10/18/24 08:09 TRUCK REPAIR SERVICE [email or web address] (ml) Colloids volume administered ( ml) Blood Product volume administered (ml) Total IV fluid infused 500 10/18/24 08:09 TRUCK REPAIR SERVICE ESTIMATOR.[email or web address] Anesthesia Postop Eval I: Summary Notes Anesthesia Complication No 10/18/24 08:09 TRUCK REPAIR SERVICE ESTIMATOR.[email or web address] Anesthesia Complication Comment: Post-operative progress note Anesthesia: Postop Eval II Evaluation Mental status: Awake Pain Level: 0 nausea: No Vomiting: No
== END 2024-10-18 09:07 | disposition home or self-care (01) ==
LOC: SDC 05:21 → AC 06:27
PROVIDERS: PCP Family Medicine; Referring Provider Urology; Visit Provider Urology
PROC: (CPT 55874; principal; 2024-10-18 07:15)
DX: C61 Malignant neoplasm of prostate (principal); G20.A1 Parkinson's disease without dyskinesia, without mention of fluctuations; E11.9 Type 2 diabetes mellitus without complications; I10 Essential (primary) hypertension; E78.00 Pure hypercholesterolemia, unspecified; F17.210 Nicotine dependence, cigarettes, uncomplicated; Z79.82 Long term (current) use of aspirin; Z79.84 Long term (current) use of oral hypoglycemic drugs; Z79.899 Other long term (current) drug therapy
CPT/HCPCS: 55876; 55874; 00902; 82962; A4648; C1889; J2405

== ENCOUNTER → 2024-11-08 | Outpatient (CLI) | payer MEDICARE, OTHER, SELFPAY ==
--- NOTE | 2024-11-08 11:02 | MRI_ITS ---
EXAM: PELVIS W/WO CONTRAST 11/08/2024 CLINICAL HISTORY: EVAL EXTENT OF PROSTATE CANCER, PLANNING FOR XRT. TECHNIQUE: MRI of the pelvis was performed. Multiplanar and multisequence images were obtained with intravenous gadolinium contrast. Multiplanar, multisequence MRI of the prostate was performed before and following intravenous gadolinium-based contrast. Axial, coronal, and sagittal high-resolution T2-weighted images, axial T1-weighted images, diffusion-weighted images with high B value, and dynamic postcontrast fat saturated T1-weighted images were performed. CONTRAST: Clariscan VOLUME: 15 mL COMPARISON: MRI on 08/26/2024. FINDINGS: Prostate Volume: 46.7 mL (prostate measures 5.3 x 4.1 x 4.1 cm) this is unchanged. Peripheral Zone: 2.4 x 1.7 x 0.9 cm T2 hypointense mass with restricted diffusion spanning the bilateral posteromedial peripheral zones at the mid gland. The mass causes subtle capsular bulging contacting but not invading the rectum, unchanged. Transitional Zone: Typical BPH nodules Seminal vesicles: Normal and symmetric. Neurovascular bundles: Normal and symmetric. Lymph nodes: No significant lymphadenopathy is seen. Bone marrow: No suspicious lesions. Miscellaneous: Small fat containing inguinal hernias. Sigmoid diverticulosis. MRI/Pelvis W/WO Contrast IMPRESSION: 1. 2.4 cm PI-RADS 5 mass in the peripheral zone as described. The mass slightly bulges the capsule contacting but not invading the rectum. 2. No significant change is noted since the prior exam. Reading Location[facility] [id number]
== END | disposition home or self-care (01) ==
LOC: MRI 10:53
PROVIDERS: PCP Family Medicine; Referring Provider Student in an Organized Health Care Education/Training Program; Visit Provider Student in an Organized Health Care Education/Training Program
DX: C61 Malignant neoplasm of prostate (principal)
CPT/HCPCS: 72197; A9575; A4216

== ENCOUNTER → 2025-04-30 | Outpatient (CLI) | payer MEDICARE, OTHER, SELFPAY ==
[2025-04-30 09:49] LABS: AST(SGOT) 20 U/L (<=37); Alanine Aminotransfer ALT/SGPT 5 U/L (<=46); Albumin, Serum 3.8 g/dL (3.4-4.8); Alkaline Phosphatase 104 U/L (40-129); Anion Gap 12 (5-15); BUN 14 mg/dL (4-19); BUN/Creat Ratio 16.3 RATIO (10-20); Calcium,Total 8.9 mg/dL (7.6-11.0); Carbon Dioxide 22.3 mmol/L (21.0-32.0); Chloride 103 mmol/L (98-108); Cholesterol 129 mg/dL (<=200); Globulin 2.7 g/dL (2.2-4.2); Glucose 147 mg/dL (70-99); Low Density Lipoprotein Calc. 56 mg/dL; Potassium 3.7 mmol/L (3.3-5.1); Triglycerides 79 mg/dL; Very Low Density Lipoprotein 16 mg/dL (5-40); cholesterol:hdl ratio screen 2.26
== END | disposition home or self-care (01) ==
LOC: LAB 08:55
PROVIDERS: PCP Family Medicine; Referring Provider Family Medicine; Visit Provider Family Medicine
DX: G20.A1 Parkinson's disease without dyskinesia, without mention of fluctuations (principal); E78.00 Pure hypercholesterolemia, unspecified; R73.09 Other abnormal glucose
CPT/HCPCS: 36415; 80053; 80061; 83036

== ENCOUNTER → 2025-05-14 | Outpatient (CLI) | payer MEDICARE, OTHER, SELFPAY ==
--- NOTE | 2025-05-14 14:50 | MRI_ITS ---
PROCEDURE: SPINE LUMBAR (ROUTINE) 05/14/2025 REASON FOR EXAM: LUMBAR RADICULOPATHY TECHNIQUE: Procedure Code: MRISPL Modality: MR Procedure: SPINE LUMBAR (ROUTINE) COMPARISON: X-ray lumbar spine 02/26/2025. FINDINGS: Vertebrae: Preserved in height and signal. Status post posterior fusion of L4- L5 along with spacer placement. Modic changes type I at the opposite endplates of L3-L4. Alignment: Retrolisthesis L1 on L2, L2 on L3 by 2 mm. Conus Medullaris: Unremarkable in height and signal. L1-2: Disc desiccation. Disc bulge. Facet joint arthropathy with fluid effusion. Ligamentum flavum hypertrophy. L2-3: Disc desiccation. Disc bulge. Facet joint arthropathy with fluid effusion. Ligamentum flavum hypertrophy. Mild bilateral foramina stenosis. Mild canal stenosis. L3-4: Disc bulge. Facet joint arthropathy. Ligamentum flavum hypertrophy. Moderate left and mild right foramina stenosis. Severe canal stenosis. L4-5: Facet joints arthropathy. No foraminal or canal stenosis. L5-S1: Disc desiccation. Disc bulge. Facet arthropathy. Moderate bilateral foramina stenosis with mass-effect upon the bilateral L5 nerves. Sacrum: Unremarkable. MRI/Spine Lumbar (Routine) IMPRESSION: Degenerate changes, predominantly at L3-L4 where there is severe canal stenosis and moderate left foramina stenosis. Moderate bilateral foramina stenosis at L5-S1 with mass-effect upon the exiting bilateral L5 nerves. Reading Location: [id number]
== END | disposition home or self-care (01) ==
LOC: MRI 14:42
PROVIDERS: PCP Family Medicine; Referring Provider Orthopaedic Surgery Orthopaedic Surgery of the Spine; Visit Provider Orthopaedic Surgery Orthopaedic Surgery of the Spine
DX: M54.16 Radiculopathy, lumbar region (principal); Z98.1 Arthrodesis status
CPT/HCPCS: 72148

== ENCOUNTER → 2025-06-23 | Outpatient (CLI) | payer MEDICARE, OTHER, SELFPAY ==
[2025-06-23 16:06] LABS: PSA,Total- Diagnostic 0.12 ng/mL (0.00-4.00)
== END | disposition home or self-care (01) ==
PROVIDERS: PCP Family Medicine; Referring Provider Urology; Visit Provider Urology
DX: C61 Malignant neoplasm of prostate (principal)
CPT/HCPCS: 36415; 84153

== ENCOUNTER 2025-06-27 12:30 | Outpatient (RCR) | payer MEDICARE, OTHER, SELFPAY ==
--- NOTE | 2025-05-30 10:49 | HP.PTEVAL ---
Patient's Visit Information Visit Information Visit Information: RHONDA CARTER is a 75 year old M referred to Physical Therapy by Dr. Orion Jimenez MD with a diagnosis of spondylolisthesis. Date of Evaluation: 05/30/25 Physical Therapist: Miguel Camejo, DPT, OCS, CSCS Visit Plan Frequency: 2x /Week Duration: 4-6 Weeks Plan: 2x/week for 4-6 weeks... IE HEP trunk rotation, PT and PPU on elbows 20 2x/day, HS and quad stretch supine 30" 5x all 2x/day with HO Please start with rollout and stretching aggressiveely to HS and psoas B, Spinal ROM progress ion to tolerance, core strength mat and possibly to gym and work all to I. nsure activity mdoificaiton of avoiding aggravating activities in [employer] class. MH as needed. Subjective Subjective: Back surgery in 2023 fusion L45. Still aching somtimes. Comofrtable sitting and at rest. Walking in was painful 12/31 getting trasniently. Yard work can cause it. Bending and flexing. Does not keep him from doing much. Can walk now and tries to do a mile a day and does 3 parkinsons classes, irritant during and sometimes afteer if twisting. L hip and LB pain is his symptom, nothing further down leg lately. Still numb front of leg l anteriorly and was that way prior to surgery. Tried injections prior to surgery. Surgery did help walk further. No regualr ex at home, tries to fill in. Basic ADLs all I. Not employed. Hobbies: collect coins, sits and can do it. no active hobbies. Pain LB: Pain Intensity (Out of 10): 2 Pain Intensity Range: 0 and 8 Comment: After parkinsons class. Objective Objective: Walks mildly hunched FW, hard time extending fully due to pain, walks I, trasnfers I, steps reciprocally without rail Max tight HS and quads into psoas B, -35 90/90 test B. LB AROM ext max limited, flexion mod limitd, SB mod limited. Weakness is obvious in core wtih seatd hip testing, 3/5 abs and ext 3-. hips flexion 3+, abduction 3, extension 3 knee ext and flexion 4+, ankles 4+ steeps reciprocal without rail. painfree sitting and worse with sudden transfers and walking slightly. 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 pain Goal Time Frame: 4-6 Weeks Goal 4:: Stand up tall and walk without noticing pain in LB Goal Time Frame: 4-6 Weeks Rehabilitation Potential Physical Therapy Diagnosis: stiffness in spine and tightness in legs and weakness in cores effecting comfortable function Rehabilitation Potential: Fair Anticipated Interventions Patient/Client Instruction: Educate patient on: Condition and Plan of Care For the Purpose of:: To increase ROM, To improve nutrient delivery to tissue, To improve muscle performance and motor function, To increase tolerance to activity/condition/position and To improve gait and locomotor functions Therapeutic Exercise to Include: Strength training, Flexibilty training, Passive ROM, Active ROM and Dynamic Lumbar Stabilization For the Purpose of:: To decrease pain, To increase ROM, To improve nutrient delivery to tissue, To improve muscle performance and motor function and To improve ability of physical actions for home/community/work/leisure Manual Therapy Techniques to Include: Mobilization, Passive ROM and Soft tissue mobilization For the Purpose of:: To decrease pain, To increase ROM, To improve nutrient delivery to tissue and To improve muscle performance and motor function Thermo therapy (hot pack): Yes For the Purpose of:: To improve nutrient delivery to tissue Text: Thank you for the opportunity to evaluate your patient. For Medicare and Medicare HMO plans, please review the plan of care and approve it. It will need to be FAXED BACK to us at [phone] for Medicare purposes. For Medicare only, by signing this I certify the plan of care. Please let me know if there are questions or concerns regarding this plan of care. Physician Signature: Date:
--- NOTE | 2025-06-27 13:04 | HP.PTDCSUM_ITS ---
Discharge Summary D/C summary: It has been my pleasure to treat RHONDA CARTER referred by Dr. Orion Jimenez MD, with the diagnosis of spondylolisthesis for a total of 9 visit(s). Discharge Date: 06/27/25 Please see the following information for a summary of their discharge status. Subjective Subjective: Made progress. 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 Will continue in gym 3xweek and with PD ex 3 times per week. Pain is minimal LB 2/10 intermittent worse with mowing. Ovrall back improving. Pain LB: Pain Intensity (Out of 10): 0 Overall Improvement % Improvement: 30 Objective Objective/Function: Walking up tall today adn stps reciprocal without rail. 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 D/C Information Discharge Comments: Pt to continue home and gym ex I. d/c sentence: If there are questions or concerns regarding this patient's physical therapy, please feel free to call me at [phone]. Thank you for the referral of this patient. Sincerely, Miguel Camejo, DPT, OCS, CSCS Balance/Gait/Functional tests Balance/Special Test Scores Oswestry Low Back Score: 5 Improvement % Improvement: 30
== END 2025-06-27 15:03 | disposition home or self-care (01) ==
LOC: PT 12:30
PROVIDERS: PCP Family Medicine; Referring Provider Orthopaedic Surgery Orthopaedic Surgery of the Spine; Visit Provider Orthopaedic Surgery Orthopaedic Surgery of the Spine
DX: M43.16 Spondylolisthesis, lumbar region (principal); M54.16 Radiculopathy, lumbar region
CPT/HCPCS: 97110; 97161; 97164